=== PATIENT | female | born 1940 | race Caucasian/White ===

== ENCOUNTER 2018-02-01 17:35 | Inpatient (IN) | payer MEDICARE, BC ==
[~2018-02-01] VITALS: Ht 165.1 cm; Wt 71.2 kg
[2018-02-01] MEDS ORDERED: oxyCODONE/APAP (5/325 MG) 1 UDTAB TABLET ONE (17:58)
[2018-02-01] MEDS ORDERED: oxyCODONE/APAP (5/325 MG) 1 UDTAB TABLET PO ONE (18:00)
[2018-02-01] MEDS ORDERED: IV NS 0.9% 1,000 ML BAG IV ONE (18:00)
--- NOTE | 2018-02-01 18:00 | NUR ---
JOSUE FROM [facility] S/P R TOTAL HIP REPLACEMENT-- INSERTION SITE NOT HEALING AND NOTED WITH BLEEDING. PATIENT SX WAS 01/09/18 BY MD SELBY. PATIENT IS AWAKE AND ALERT. NOTED FEBRILE AT THIS TIME. CONNECTED PT TO TELE MONITOR. SEEN BY
[2018-02-01] MEDS ORDERED: AMIN30LI4 PO (18:05)
[2018-02-01] MEDS ORDERED: OMEP20CA10 PO (18:05)
[2018-02-01] MEDS ORDERED: BISA10SU8 RC (18:05)
[2018-02-01] MEDS ORDERED: LACT1CAP71 PO (18:05)
[2018-02-01] MEDS ORDERED: ACET-868 PO (18:05)
[2018-02-01] MEDS ORDERED: AMIO200T4 PO (18:05)
[2018-02-01] MEDS ORDERED: OXYC-133 PO (18:05)
[2018-02-01] MEDS ORDERED: DOCU-141 PO (18:05)
[2018-02-01] MEDS ORDERED: FERR325T23 PO (18:05)
[2018-02-01] MEDS ORDERED: GABA-532 PO (18:05)
[2018-02-01] MEDS ORDERED: POLY17PO4 PO (18:05)
[2018-02-01] MEDS ORDERED: MAGN400O6 PO (18:05)
[2018-02-01] MEDS ORDERED: SENN-18 PO (18:05)
[2018-02-01] MEDS ORDERED: ALBU2.5V38 IH (18:05)
--- NOTE | 2018-02-01 18:06 | NUR ---
PATIENT REFUSED STRAIGHT CATHETER NOR BEDPAN.
--- NOTE | 2018-02-01 18:14 | NUR ---
PATIENT WAS TAKEN TO CT
[2018-02-01 18:18] LABS: BASOPHILS % (AUTO) 0.4 % (0.0-2.0); EOSINOPHILS % (AUTO) 0.5 % (0.0-6.0); HEMATOCRIT 32 % (33-45); HEMOGLOBIN 9.8 g/dL (11.5-14.8); LYMPHOCYTES # (AUTO) 0.8 /CMM (0.8-4.8); LYMPHOCYTES % (AUTO) 8.6 % (20.0-44.0); MEAN CORPUSCULAR HEMOGLOBIN 26 PG (26.0-33.0); MEAN CORPUSCULAR HGB CONC 30 g/dl (31.0-36.0); MEAN CORPUSCULAR VOLUME 86 fL (82-100); MONOCYTES # (AUTO) 0.8 /CMM (0.1-1.30); MONOCYTES % (AUTO) 8.1 % (2.0-12.0); NEUTROPHILS # (AUTO) 8.1 /CMM (1.8-8.9); NEUTROPHILS % (AUTO) 82.4 % (43.0-81.0); PLATELET COUNT (AUTO) 417 /CMM (150-450); RDW COEFFICIENT OF VARIATION 20.5 (11.5-15.0); RED BLOOD CELL COUNT(AUTO) 3.77 MIL/uL (4.0-5.2); WHITE BLOOD COUNT (AUTO) 9.9 K/uL (4.3-11.0)
[2018-02-01 18:20] LABS: CALCIUM, SERUM 8.3 mg/dL (8.5-10.1); CARBON DIOXIDE 28 mmol/L (21-32); CHLORIDE 100 mmol/L (98-107); CREATININE 0.7 mg/dL (0.6-1.3); GLUCOSE 92 mg/dL (74-106); POTASSIUM 3.7 mmol/L (3.5-5.1); SODIUM SERUM 133 mmol/L (136-145); UREA NITROGEN, BLOOD 11 mg/dL (7-18)
[2018-02-01 18:24] LABS: INR 1.4 (0.85-1.15)
[2018-02-01 18:25] LABS: ALANINE AMINOTRANSFERASE 22 U/L (12-78); ALBUMIN 2.3 g/dL (3.4-5.0); ALKALINE PHOSPHATASE 688 U/L (46-116); ASPARTATE AMINOTRANSFERASE 33 U/L (15-37); BILIRUBIN,DIRECT 0.4 mg/dL (0.0-0.2); BILIRUBIN,TOTAL 0.9 mg/dL (0.2-1.0); LIPASE 76 U/L (73-393); TOTAL PROTEIN, SERUM 6.5 g/dL (6.4-8.2)
--- NOTE | 2018-02-01 18:57 | NUR ---
PAGED DR EDILIA PEARSON MD FOR THIS PATIENT
--- NOTE | 2018-02-01 19:03 | NUR ---
CALLED [facility] FOR THIS PATIENT, MILL CONTROL OPERATOR ANANTH LUGO WAS PAGED.
--- NOTE | 2018-02-01 19:10 | NUR ---
REPORT RECEIVED FROM HYACINTH ESPINAL FOR ROWDY.
--- NOTE | 2018-02-01 19:15 | NUR ---
JONES LUGO SPEAKING TO DR. JOHNS REGARDING ADMISSION.
--- NOTE | 2018-02-01 19:23 | NUR ---
CALLED RN SUP FOR M/S BED.
[2018-02-01] MEDS ORDERED: Z GUARD REMEDY 2 OZ OINT TP PRN (19:30)
[2018-02-01] MEDS ORDERED: ONDANSETRON HCL/PF 4 MG/2 ML VIAL IVP PRN (19:30)
[2018-02-01] MEDS ORDERED: ACETAMINOPHEN 325 MG TABLET PO PRN (19:30)
[2018-02-01] MEDS ORDERED: HYDROCODONE/APAP 5/325MG 1 EACH TABLET PO PRN (19:30)
--- NOTE | 2018-02-01 19:43 | NUR ---
ADMIT TO 204-1
--- NOTE | 2018-02-01 19:47 | NUR ---
REPORT GIVEN TO HYACINTH WHITMORE FOR ROWDY.
--- NOTE | 2018-02-01 19:50 | NUR ---
PT TRANSPORTED VIA STRETCHER WITH EMT TO MS 204.1. VSS.
[2018-02-01] MEDS ORDERED: MAGNESIUM HYDROXIDE 30 ML UDC PO PRN (20:00)
[2018-02-01] MEDS ORDERED: BISACODYL SUPP (10 MG) 10 MG/SUPP.RECT SUPP.RECT RC PRN (20:00)
[2018-02-01] MEDS: IV NS 0.9% 1,000 ML IV PRN (20:20)
[2018-02-01] MEDS: SENNOSIDES 8.6 MG TABLET PO SCH (22:00)
--- NOTE | 2018-02-01 22:00 | NUR ---
RN NOTES 1999 - RECEIVED PT AWAKE, ALERT AND ORIENTED X3 VIA GURNEY FROM ER ACCOMPANIED BY 2 ER NURSE. PAIN ON RIGHT HIP AT TOLERABLE LEVEL AT THIS TIME 08/27. VITAL SIGNS STABLE, DENIES NAUSEA AND VOMITING. SKIN ASSESSMENT DONE, RIGHT HIP SURGICAL INCISION ABOUT 17 CM LONG WITH 23 OSKAR WITH MILD BLEEDING AND REDNESS AND SACRAL REDNESS. ADMISSION ORDERS NOTED AND CARRIED OUT. PLAN OF CARE DISCUSSED WITH THE PT. SAFETY MEASURES AND FALL PRECAUTION OBSERVED. 2199 - IT WAS NOTED THAT THE ORDER FOR THE PT IS TELEMETRY, CALIBRATOR BAROMETERS ANASTASIA NOTIFIED. ARASH CHARGE NURSE NOTIFIED AND PT WILL BE MOVED TO MS 3 IN RM 310-1. PT WAS TRANSPORTED TO RM 310-1 IN STABLE CONDITION.
[2018-02-01 22:05] VITALS: BP 148/95
--- NOTE | 2018-02-01 22:10 | NUR ---
MS/RN RECEIVE PATIENT FROM MS SECOND FLOOR. PATIENT IS AWAKE, ALERT, ORIENTED, COMFORTABLE, NO DISTRESS NOTED. ADMISSION DONE PER PROTOCOL. PATIENT UNABLE TO PROVIDE SOME OF HEALTH HISTORY, SOME ADMISSION INFORMATIONS WERE TAKEN FROM E.R. NOTED, PLAN OF CARE DISCUSSED, PATIENT VERBALIZED UNDERSTANDING, FALL PRECAUTIONS PER PROTOCOL INSTITUTED, WILL MONITOR.
[2018-02-01 23:21] LABS: BASOPHILS % (AUTO) 0.1 % (0.0-2.0); HEMATOCRIT 30 % (33-45); HEMOGLOBIN 9.1 g/dL (11.5-14.8); LYMPHOCYTES # (AUTO) 0.8 /CMM (0.8-4.8); LYMPHOCYTES % (AUTO) 8.6 % (20.0-44.0); MEAN CORPUSCULAR HEMOGLOBIN 26 PG (26.0-33.0); MEAN CORPUSCULAR HGB CONC 30 g/dl (31.0-36.0); MEAN CORPUSCULAR VOLUME 86 fL (82-100); MONOCYTES # (AUTO) 0.8 /CMM (0.1-1.30); MONOCYTES % (AUTO) 9.5 % (2.0-12.0); NEUTROPHILS # (AUTO) 7.2 /CMM (1.8-8.9); NEUTROPHILS % (AUTO) 80.8 % (43.0-81.0); PLATELET COUNT (AUTO) 379 /CMM (150-450); RDW COEFFICIENT OF VARIATION 21.2 (11.5-15.0); RED BLOOD CELL COUNT(AUTO) 3.53 MIL/uL (4.0-5.2); WHITE BLOOD COUNT (AUTO) 8.9 K/uL (4.3-11.0)
--- NOTE | 2018-02-01 23:57 | NUR ---
RN NOTES: NOTED RIGHT AC IV ACCESS TO BE INFILTRATED, REMOVED ACCESSED, PRESSURED DRESSING APPLIED, RESTARTED NEW IV ON RIGHT WRIST PT REFUSING LEFT ARM STATED IT HAS BROKEN BONE/BROKEN SHOULDER. GOOD BLOOD RETURN NOTED. RECONNECTED BACK TO IVF.
[2018-02-02] VITALS: BP 143/69
--- NOTE | 2018-02-02 | NUR ---
MS/HYACINTH LUGO NP, AT BEDSIDE.
--- NOTE | 2018-02-02 01:16 | NUR ---
MS/RN PATIENT IS SLEEPING AT THIS TIME, AROUSABLE, APPEAR COMFORTABLE, NO DISTRESS NOTED, CALL LIGHT IN REACH. IVF INFUSING. ALL NEEDS ATTENDED AT THIS TIME, ENDORSED TO NEXT RN FOR CONTINUITY OF CARE.
[2018-02-02] MEDS: oxyCODONE/APAP (5/325 MG) 1 UDTAB TABLET PO PRN ×5 (02:27→21:20)
[2018-02-02 04:00] VITALS: BP 145/74
--- NOTE | 2018-02-02 06:41 | NUR ---
TEMPERATURE REGULATOR CLOSING NOES PT IN BED, AWAKE A/OX 4 , FORGETFUL. NO ACUTE DISTRESS NOTED. PT COMPLAINS OF PAIN AT SURGICAL SIDE, NEXT PAIN MED. CAN BE GIVEN AT 0600 AM. IV SIDE ON R WRIST #22, RUNNING NS AT 75ML/H.ALL NEEDS ATTENDED. SAFETY PRECAUTIONS IN PLACE, CALL LIGHT WITHIN REACH.WOUND DRESSING CHANGED DUE TO BLEEDING. WILL ENDORSE TO NEXT SHIFT FOR ROWDY.
--- NOTE | 2018-02-02 07:15 | NUR ---
telephone clerk initial notes Received patient in bed, awake, head of bed elevated, no SOB or distress noted, on 02 @ 2lpm via NC with 02 saturation of 98%. Alert and oriented x 3, verbally responsive and able to make needs known. Verbalized pain and will give medication. IV intact and patent with IVF infusing well. On tele monitor SR heart rate of 64. Call light within patient reach, will continue to monitor accordingly.
[2018-02-02 07:32] LABS: BASOPHILS % (AUTO) 0.1 % (0.0-2.0); CALCIUM, SERUM 7.9 mg/dL (8.5-10.1); CARBON DIOXIDE 25 mmol/L (21-32); CHLORIDE 107 mmol/L (98-107); CREATININE 0.5 mg/dL (0.6-1.3); EOSINOPHILS % (AUTO) 2.4 % (0.0-6.0); GLUCOSE 96 mg/dL (74-106); HEMATOCRIT 29 % (33-45); HEMOGLOBIN 8.9 g/dL (11.5-14.8); LYMPHOCYTES # (AUTO) 0.8 /CMM (0.8-4.8); LYMPHOCYTES % (AUTO) 10.3 % (20.0-44.0); MAGNESIUM 1.7 mg/dL (1.8-2.4); MEAN CORPUSCULAR HEMOGLOBIN 26 PG (26.0-33.0); MEAN CORPUSCULAR HGB CONC 30 g/dl (31.0-36.0); MEAN CORPUSCULAR VOLUME 87 fL (82-100); MONOCYTES # (AUTO) 0.9 /CMM (0.1-1.30); NEUTROPHILS % (AUTO) 76.2 % (43.0-81.0); PHOSPHORUS 2.9 mg/dL (2.5-4.9); PLATELET COUNT (AUTO) 338 /CMM (150-450); POTASSIUM 3.5 mmol/L (3.5-5.1); RDW COEFFICIENT OF VARIATION 20.3 (11.5-15.0); RED BLOOD CELL COUNT(AUTO) 3.37 MIL/uL (4.0-5.2); SODIUM SERUM 139 mmol/L (136-145); UREA NITROGEN, BLOOD 10 mg/dL (7-18); WHITE BLOOD COUNT (AUTO) 7.9 K/uL (4.3-11.0)
[2018-02-02] MEDS ORDERED: ALBUTEROL FS 2.5 MG/3 ML VIAL.NEB NEB PRN (07:36)
[2018-02-02] MEDS: PANTOPRAZOLE 40 MG TABLET.DR PO SCH (07:49)
[2018-02-02 07:56] LABS: CHOLESTEROL 228 mg/dL (<200); HDL CHOLESTEROL 49 mg/dL (40-60); LDL 154 mg/dL (0-99); THYROID STIMULATING HORMONE 1.425 uIU/mL (0.358-3.74); TRIGLYCERIDES 79 mg/dL (30-150)
[2018-02-02 08:00] VITALS: BP 160/86
[2018-02-02] MEDS ORDERED: oxyCODONE/APAP (5/325 MG) 1 UDTAB TABLET PO PRN (08:00)
[2018-02-02] MEDS: IV NS 0.9% 1,000 ML IV PRN (08:38)
[2018-02-02] MEDS: GABAPENTIN 100 MG CAPSULE PO SCH ×3 (08:39→16:55)
[2018-02-02] MEDS: PROSOURCE / PROSTAT (PYXIS) 30 ML UDC PO SCH ×3 (08:39→16:57)
[2018-02-02] MEDS: DOCUSATE SODIUM 100 MG CAPSULE PO SCH ×2 (08:39→16:55)
[2018-02-02] MEDS: ACIDOPHILUS/BULGARICUS 1 EACH TAB.CHEW PO SCH ×2 (08:40→21:20)
[2018-02-02] MEDS: POLYETHYLENE GLYCOL 3350 17 GM POWD.PACK PO SCH (08:40)
[2018-02-02] MEDS: AMIODARONE HCL 200 MG TABLET PO SCH (08:40)
[2018-02-02 10:07] LABS: TOTAL IRON BINDING CAPACITY 359 ug/dl (250-450)
[2018-02-02] MEDS: Magnesium 1GM/D5W 100ML PREMIX 100 ML IV SCH ×2 (10:07→11:31)
[2018-02-02] MEDS ORDERED: Magnesium 1GM/D5W 100ML PREMIX 100 ML IV SCH (10:33)
[2018-02-02 10:59] LABS: IRON, SERUM 16 ug/dl (50-175)
[2018-02-02 12:04] LABS: BASOPHILS % (AUTO) 0.4 % (0.0-2.0); EOSINOPHILS % (AUTO) 1.6 % (0.0-6.0); HEMATOCRIT 27 % (33-45); HEMOGLOBIN 8.9 g/dL (11.5-14.8); LYMPHOCYTES # (AUTO) 0.7 /CMM (0.8-4.8); MEAN CORPUSCULAR HEMOGLOBIN 28 PG (26.0-33.0); MEAN CORPUSCULAR HGB CONC 33 g/dl (31.0-36.0); MEAN CORPUSCULAR VOLUME 85 fL (82-100); MONOCYTES # (AUTO) 0.8 /CMM (0.1-1.30); MONOCYTES % (AUTO) 10.1 % (2.0-12.0); NEUTROPHILS # (AUTO) 6.3 /CMM (1.8-8.9); NEUTROPHILS % (AUTO) 78.9 % (43.0-81.0); PLATELET COUNT (AUTO) 349 /CMM (150-450); RDW COEFFICIENT OF VARIATION 19.1 (11.5-15.0); RED BLOOD CELL COUNT(AUTO) 3.22 MIL/uL (4.0-5.2); WHITE BLOOD COUNT (AUTO) 7.9 K/uL (4.3-11.0)
[2018-02-02] MEDS: SOD FERRIC GLUC 125 MG in IV NS 0.9% 100 ML IV SCH (15:04)
[2018-02-02 16:00] VITALS: BP 131/60
[2018-02-02] MEDS: ALBUTEROL FS 2.5 MG/3 ML VIAL.NEB NEB SCH (16:24)
[2018-02-02 17:17] LABS: HEMATOCRIT 29 % (33-45); HEMOGLOBIN 9.1 g/dL (11.5-14.8); MEAN CORPUSCULAR HEMOGLOBIN 27 PG (26.0-33.0); MEAN CORPUSCULAR HGB CONC 32 g/dl (31.0-36.0); MEAN CORPUSCULAR VOLUME 85 fL (82-100); PLATELET COUNT (AUTO) 378 /CMM (150-450); RED BLOOD CELL COUNT(AUTO) 3.38 MIL/uL (4.0-5.2); WHITE BLOOD COUNT (AUTO) 8.3 K/uL (4.3-11.0)
--- NOTE | 2018-02-02 19:02 | NUR ---
ms rn closing notes All needs provided, attended, and anticipated. patient in stable condition. Endorsed to next shift RN to continue care. Call light with in patient reach.
--- NOTE | 2018-02-02 19:15 | NUR ---
MS RN OPENING NOTES PT IN BED, AWAKE, NO SOB OR DISTRESS NOTED,ON 2L O2 VIA NC. IV INTACT AND PATENT S/L , IV FLUID D/C.STATUS NPO AFTER MIDNIGHT. SAFETY PRECAUTIONS IN PLACE, CALL LIGHT WITHIN REACH. WILL CONTINUE TO MONITOR .
[2018-02-02 19:31] LABS: LYMPHOCYTES % (MANUAL) 14 % (16-48); MONOCYTES % (MANUAL) 6 % (0-11.0); NEUTROPHILS % (MANUAL) 80 (42-76)
[2018-02-02 20:00] VITALS: BP_SYST 141; BP_SYST 145; BP_DIAS 65; BP_DIAS 69; BP_DIAS 74
[2018-02-02] MEDS: SENNOSIDES 8.6 MG TABLET PO SCH (21:20)
[2018-02-02] MEDS: ZOLPIDEM TARTRATE 5 MG TABLET PO PRN (23:13)
[2018-02-03] MEDS: oxyCODONE/APAP (5/325 MG) 1 UDTAB TABLET PO PRN ×2 (02:03→07:02)
--- NOTE | 2018-02-03 02:55 | NUR ---
RT I WAS NOT MADE AWARE OF SCHEDULED HHN TX FOR PT. I CHECKED ON PT, PT IS CURRENTLY SLEEPING COMFORTABLY WITH NO SINGS OF SOB OR RESP DISTRESS AT THE TIME.
[2018-02-03 04:52] LABS: HEMATOCRIT 28 % (33-45); HEMOGLOBIN 8.7 g/dL (11.5-14.8); MEAN CORPUSCULAR HEMOGLOBIN 26 PG (26.0-33.0); MEAN CORPUSCULAR HGB CONC 31 g/dl (31.0-36.0); MEAN CORPUSCULAR VOLUME 85 fL (82-100); PLATELET COUNT (AUTO) 370 /CMM (150-450); RDW COEFFICIENT OF VARIATION 19.7 (11.5-15.0); RED BLOOD CELL COUNT(AUTO) 3.31 MIL/uL (4.0-5.2); WHITE BLOOD COUNT (AUTO) 8.1 K/uL (4.3-11.0)
[2018-02-03 05:14] LABS: BAND % (MANUAL) 1 % (0.0-5.0); EOSINOPHILS % (MANUAL) 2 % (0-4); LYMPHOCYTES % (MANUAL) 15 % (16-48); MONOCYTES % (MANUAL) 6 % (0-11.0); NEUTROPHILS % (MANUAL) 76 (42-76)
--- NOTE | 2018-02-03 06:40 | NUR ---
MS RN CLOSING OTES PT IN STABLE CONDITION , STATUS NPO SINCE MIDNIGHT.ALL NEEDS ANTICIPATED, PRN PAIN MEDS GIVEN.DRESSING CHANGE DONE AND PICTURES ARE TAKEN AND PLACED IN THE CHART.SAFETY PRECAUTIONS IN PLACE, CALL LIGHT WITHIN REACH. WILL ENDORSE TO NEXT SHIFT FOR ROWDY.
--- NOTE | 2018-02-03 07:10 | NUR ---
ms rn initial notes Receive patient in bed, awake, head of bed elevated, no SOB or distress noted, on 02 @ 2lpm via NC and tolerated well. Alert and oriented x 3 verbally responsive and able to make needs known. IV intact and patent, NPO at this time, scheduled procedure with Dr. Curtis today. Call light with in patient reach, will continue to monitor accordingly.
[2018-02-03 07:26] LABS: ALBUMIN 1.8 g/dL (3.4-5.0); ALKALINE PHOSPHATASE 485 U/L (46-116); ASPARTATE AMINOTRANSFERASE 21 U/L (15-37); BILIRUBIN,TOTAL 0.4 mg/dL (0.2-1.0); CARBON DIOXIDE 29 mmol/L (21-32); CHLORIDE 109 mmol/L (98-107); CREATININE 0.5 mg/dL (0.6-1.3); GLUCOSE 86 mg/dL (74-106); POTASSIUM 3.6 mmol/L (3.5-5.1); SODIUM SERUM 142 mmol/L (136-145); TOTAL PROTEIN, SERUM 5.4 g/dL (6.4-8.2); UREA NITROGEN, BLOOD 12 mg/dL (7-18)
[2018-02-03] MEDS: PANTOPRAZOLE 40 MG TABLET.DR PO SCH (07:30)
[2018-02-03 07:37] LABS: ALANINE AMINOTRANSFERASE 14 U/L (12-78)
[2018-02-03 07:59] LABS: HEMATOCRIT 27 % (33-45); HEMOGLOBIN 8.5 g/dL (11.5-14.8); MEAN CORPUSCULAR HEMOGLOBIN 27 PG (26.0-33.0); MEAN CORPUSCULAR HGB CONC 32 g/dl (31.0-36.0); MEAN CORPUSCULAR VOLUME 85 fL (82-100); PLATELET COUNT (AUTO) 370 /CMM (150-450); RED BLOOD CELL COUNT(AUTO) 3.14 MIL/uL (4.0-5.2); WHITE BLOOD COUNT (AUTO) 7.6 K/uL (4.3-11.0)
[2018-02-03 08:00] VITALS: BP 153/69
[2018-02-03] MEDS: ALBUTEROL FS 2.5 MG/3 ML VIAL.NEB NEB SCH ×3 (08:37→19:36)
[2018-02-03] MEDS: DOCUSATE SODIUM 100 MG CAPSULE PO SCH ×2 (08:54→16:38)
[2018-02-03] MEDS: PROSOURCE / PROSTAT (PYXIS) 30 ML UDC PO SCH ×3 (08:55→16:38)
[2018-02-03] MEDS: GABAPENTIN 100 MG CAPSULE PO SCH ×3 (08:55→16:35)
[2018-02-03] MEDS: AMIODARONE HCL 200 MG TABLET PO SCH (08:55)
[2018-02-03] MEDS: ACIDOPHILUS/BULGARICUS 1 EACH TAB.CHEW PO SCH ×2 (08:55→20:24)
[2018-02-03] MEDS: POLYETHYLENE GLYCOL 3350 17 GM POWD.PACK PO SCH (08:55)
[2018-02-03] MEDS ORDERED: ANESTHESIA TRAY IN PYXIS 1 EA TRAY MC ONE (09:21)
[2018-02-03] MEDS ORDERED: MORPHINE SULFATE INJ 4 MG/ML DISP.SYRIN ONE ×2 (09:52→11:15)
[2018-02-03 10:18] LABS: LYMPHOCYTES % (MANUAL) 12 % (16-48); NEUTROPHILS % (MANUAL) 79 (42-76)
[2018-02-03 10:19] LABS: BASOPHILS % (MANUAL) 0 % (0.0-2.0); EOSINOPHILS % (MANUAL) 4 % (0-4); MONOCYTES % (MANUAL) 5 % (0-11.0)
[2018-02-03] MEDS ORDERED: BACITRACIN 50000 UNITS/VIAL ONE (10:21)
[2018-02-03] MEDS ORDERED: MORPHINE SULFATE INJ 2 MG/ML DISP.SYRIN IV PRN (12:00)
[2018-02-03] MEDS: HYDROCODONE/APAP 10/325MG 1 EA TABLET PO PRN ×3 (12:31→20:50)
[2018-02-03] MEDS: SOD FERRIC GLUC 125 MG in IV NS 0.9% 100 ML IV SCH (14:18)
[2018-02-03 16:00] VITALS: BP 139/64
[2018-02-03] MEDS: ANCEF 1 GM/50 ML D5W IV SCH ×2 (17:19)
[2018-02-03] MEDS: IV D5/0.45 NACL W/20 MEQ KCL 1L IV PRN ×2 (17:22)
--- NOTE | 2018-02-03 19:14 | NUR ---
ms rn closing notes All needs provided, attended, and anticipated. Patient in stable condition at this time. Endorsed to next shift RN to continue care. Call light with in patient reach.
--- NOTE | 2018-02-03 19:30 | NUR ---
RN MS OPENING NOTES RECEIVED PATIENT IN BED AWAKE. ALERT AND ORIENTED X3. BREATHING EVEN AND UNLABORED. NO SOB NOTED. ON 2L OF O2 VIA NC. DENIES ANY PAIN OR DISCOMFORT. IV ON LEFT FA INTACT AND PATENT - INFUSING D5 1/2 NS @ 75ML/HR. ALL OTHER NEEDS ATTENDED TO. CALL LIGHT WITHIN REACH. BED ON LOWEST LOCKED POSITION. WILL CONTINUE TO MONITOR.
[2018-02-03 20:00] VITALS: BP 126/67
[2018-02-03] MEDS: SENNOSIDES 8.6 MG TABLET PO SCH (21:03)
[2018-02-03] MEDS: ZOLPIDEM TARTRATE 5 MG TABLET PO PRN (22:24)
[2018-02-04] MEDS: ALBUTEROL FS 2.5 MG/3 ML VIAL.NEB NEB SCH ×4 (01:30→20:20)
--- NOTE | 2018-02-04 01:45 | NUR ---
RT NOTE PATIENT REFUSED TREATMENT. PRIMARY RN STANFORD NOTIFIED. PATIENT HAS NO SIGNS OF RESPIRATORY DISTRESS. SPO2 96% ON 2LPM. WILL CONTINUE TO MONITOR.
[2018-02-04] MEDS: ANCEF 1 GM/50 ML D5W IV SCH ×4 (02:27→09:32)
[2018-02-04] MEDS: HYDROCODONE/APAP 10/325MG 1 EA TABLET PO PRN ×4 (04:34→20:02)
--- NOTE | 2018-02-04 06:59 | NUR ---
RN MS CLOSING NOTES PATIENT IN BED ASLEEP. EASILY AROUSABLE. NO ACUTE CHANGES THROUGHOUT SHIFT. ALERT AND ORIENTED X3. BREATHING EVEN AND UNLABORED. NO SOB NOTED. ON 2L OF O2 VIA NC. DENIES ANY PAIN OR DISCOMFORT AT THIS TIME. IV ON LEFT FA INTACT AND PATENT - INFUSING D5 1/2 NS @ 75ML/HR. KEPT CLEAN DRY AND COMFORTABLE. ALL OTHER NEEDS ATTENDED TO. CALL LIGHT WITHIN REACH. BED ON LOWEST LOCKED POSITION. WILL ENDORSE TO ONCOMING NURSE FOR CONTINUITY OF CARE.
--- NOTE | 2018-02-04 07:05 | NUR ---
ms rn initial notes Received patient in bed, asleep, head of bed elevated, no SOB or distress noted, on 02 @ 2lpm via NC and tolerated well. Appears calm and no apparent distress noted. IV intact and patent with IVF infusing well. Call light with in patient reach, will continue to monitor accordingly.
[2018-02-04 07:15] LABS: CALCIUM, SERUM 8.1 mg/dL (8.5-10.1); CARBON DIOXIDE 25 mmol/L (21-32); CHLORIDE 105 mmol/L (98-107); CREATININE 0.6 mg/dL (0.6-1.3); GLUCOSE 98 mg/dL (74-106); MAGNESIUM 1.7 mg/dL (1.8-2.4); PHOSPHORUS 2.9 mg/dL (2.5-4.9); POTASSIUM 4.1 mmol/L (3.5-5.1); SODIUM SERUM 139 mmol/L (136-145); UREA NITROGEN, BLOOD 11 mg/dL (7-18)
[2018-02-04 08:00] VITALS: BP 149/73
[2018-02-04 08:12] LABS: RED BLOOD CELL COUNT(AUTO) 3.24 MIL/uL (4.0-5.2); WHITE BLOOD COUNT (AUTO) 8.7 K/uL (4.3-11.0)
[2018-02-04 08:13] LABS: BASOPHILS % (AUTO) 0.2 % (0.0-2.0); EOSINOPHILS % (AUTO) 3.4 % (0.0-6.0); HEMATOCRIT 27 % (33-45); HEMOGLOBIN 8.7 g/dL (11.5-14.8); LYMPHOCYTES % (AUTO) 10.8 % (20.0-44.0); MEAN CORPUSCULAR HEMOGLOBIN 27 PG (26.0-33.0); MEAN CORPUSCULAR HGB CONC 32 g/dl (31.0-36.0); MEAN CORPUSCULAR VOLUME 85 fL (82-100); MONOCYTES % (AUTO) 12.5 % (2.0-12.0); NEUTROPHILS % (AUTO) 73.1 % (43.0-81.0); PLATELET COUNT (AUTO) 370 /CMM (150-450)
[2018-02-04 08:14] LABS: RDW COEFFICIENT OF VARIATION 20.2 (11.5-15.0)
[2018-02-04] MEDS: GABAPENTIN 100 MG CAPSULE PO SCH ×3 (08:21→16:32)
[2018-02-04] MEDS: POLYETHYLENE GLYCOL 3350 17 GM POWD.PACK PO SCH (08:21)
[2018-02-04] MEDS: PANTOPRAZOLE 40 MG TABLET.DR PO SCH (08:21)
[2018-02-04] MEDS: ACIDOPHILUS/BULGARICUS 1 EACH TAB.CHEW PO SCH ×2 (08:21→20:01)
[2018-02-04] MEDS: DOCUSATE SODIUM 100 MG CAPSULE PO SCH ×2 (08:21→16:32)
[2018-02-04] MEDS: AMIODARONE HCL 200 MG TABLET PO SCH (08:22)
[2018-02-04] MEDS: PROSOURCE / PROSTAT (PYXIS) 30 ML UDC PO SCH ×3 (08:22→16:33)
[2018-02-04] MEDS: Magnesium 1GM/D5W 100ML PREMIX 100 ML IV SCH ×2 (10:53→12:04)
[2018-02-04 12:00] VITALS: BP 101/55
[2018-02-04] MEDS: SOD FERRIC GLUC 125 MG in IV NS 0.9% 100 ML IV SCH (14:53)
[2018-02-04 16:00] VITALS: BP_SYST 140; BP_SYST 163; BP_DIAS 76; BP_DIAS 84
[2018-02-04] MEDS ORDERED: CEFTRIAXONE 1 G in IV D5W 50 ML IV SCH (17:00)
[2018-02-04] MEDS: IV D5/0.45 NACL W/20 MEQ KCL 1L IV PRN ×2 (17:32)
--- NOTE | 2018-02-04 19:14 | NUR ---
ms rn closing notes All needs provided, attended, and anticipated. Patient in stable condition. Endorsed to operations team leader RN to continue care. Call light with in patient reach.
--- NOTE | 2018-02-04 19:30 | NUR ---
RN MS OPENING NOTES RECEIVED PATIENT IN BED AWAKE. ALERT AND ORIENTED X3. BREATHING EVEN AND UNLABORED. NO SOB NOTED. ON 2L OF O2 VIA NC. WITH PAIN 8/10 ON RIGHT HIP. WILL GIVE NORCO ON NEXT SCHEDULED TIME - PATIENT VERBALIZES UNDERSTANDING. IV ON LEFT FA INTACT AND PATENT - INFUSING D5 1/2 NS @ 10ML/HR. ALL OTHER NEEDS ATTENDED TO. CALL LIGHT WITHIN REACH. BED ON LOWEST LOCKED POSITION. WILL CONTINUE TO MONITOR.
[2018-02-04 20:00] VITALS: BP 153/79
--- NOTE | 2018-02-04 20:02 | NUR ---
RN MS NOTES PATIENT COMPLAINED OF PAIN ON RIGHT HIP AD REQUESTED FOR NORCO. PAIN IS 8/10 ON PAIN SCALE. ACHING AND THROBBING ESPECIALLY WITH MOVEMENTS. NORCO GIVEN. WILL CONTINUE TO MONITOR.
[2018-02-04] MEDS: SENNOSIDES 8.6 MG TABLET PO SCH (21:22)
[2018-02-04] MEDS: ZOLPIDEM TARTRATE 5 MG TABLET PO PRN (22:51)
[2018-02-05] MEDS: HYDROCODONE/APAP 10/325MG 1 EA TABLET PO PRN ×4 (00:43→16:51)
--- NOTE | 2018-02-05 00:43 | NUR ---
RN MS NOTES PATIENT COMPLAINED OF PAIN ON RIGHT HIP AND REQUESTED FOR NORCO. PAIN IS 7/10 ON PAIN SCALE. . NORCO GIVEN. WILL CONTINUE TO MONITOR.
[2018-02-05] MEDS: ALBUTEROL FS 2.5 MG/3 ML VIAL.NEB NEB SCH ×3 (01:35→13:55)
--- NOTE | 2018-02-05 06:50 | NUR ---
RN MS CLOSING NOTES PATIENT IN BED ASLEEP. EASILY AROUSABLE. NO ACUTE CHANGES THROUGHOUT SHIFT. ALERT AND ORIENTED X3. BREATHING EVEN AND UNLABORED. NO SOB NOTED. ON 2L OF O2 VIA NC. NO S/S PAIN OR DISCOMFORT. NO FACIAL GRIMACING. IV ON LEFT FA INTACT AND PATENT - INFUSING D5 1/2 NS @ 75ML/HR. KEPT CLEAN DRY AND COMFORTABLE. ALL OTHER NEEDS ATTENDED TO. CALL LIGHT WITHIN REACH. BED ON LOWEST LOCKED POSITION. WILL ENDORSE TO ONCOMING NURSE FOR CONTINUITY OF CARE.
[2018-02-05 06:57] LABS: CARBON DIOXIDE 26 mmol/L (21-32); CHLORIDE 103 mmol/L (98-107); CREATININE 0.5 mg/dL (0.6-1.3); GLUCOSE 94 mg/dL (74-106); MAGNESIUM 1.9 mg/dL (1.8-2.4); POTASSIUM 3.7 mmol/L (3.5-5.1); SODIUM SERUM 136 mmol/L (136-145); UREA NITROGEN, BLOOD 9 mg/dL (7-18)
[2018-02-05 08:00] VITALS: BP 147/74
[2018-02-05] MEDS: PANTOPRAZOLE 40 MG TABLET.DR PO SCH (08:07)
[2018-02-05] MEDS: DOCUSATE SODIUM 100 MG CAPSULE PO SCH ×2 (08:09→16:52)
[2018-02-05] MEDS: POLYETHYLENE GLYCOL 3350 17 GM POWD.PACK PO SCH (08:09)
[2018-02-05] MEDS: GABAPENTIN 100 MG CAPSULE PO SCH ×3 (08:10→16:51)
[2018-02-05] MEDS: ACIDOPHILUS/BULGARICUS 1 EACH TAB.CHEW PO SCH (08:10)
[2018-02-05] MEDS: AMIODARONE HCL 200 MG TABLET PO SCH (08:10)
--- NOTE | 2018-02-05 08:10 | NUR ---
MS RN Initial notes Patient sitting up in bed, consumed 100% of her breakfast. On oxygen at 2L via NC, no SOB. Had am breathing tx. per RT. Complaint of right hip paint 11/26, PO PRN norco given, will reassess pain. Right hip incision dressing intact, keep clean and dry. Maintained fall precaution, will cont to monitor.
[2018-02-05] MEDS: PROSOURCE / PROSTAT (PYXIS) 30 ML UDC PO SCH ×3 (08:11→16:52)
--- NOTE | 2018-02-05 14:47 | NUR ---
Called spoke to Luis Henry/francesco. per MD patient is clear to go home. Informed Dr. Sexton.
[2018-02-05] MEDS: SOD FERRIC GLUC 125 MG in IV NS 0.9% 100 ML IV SCH (15:02)
[2018-02-05 15:11] LABS: OCCULT BLOOD STOOL NEGATIVE (NEGATIVE)
[2018-02-05 16:00] VITALS: BP 148/80
--- NOTE | 2018-02-05 17:03 | NUR ---
MS RN Discharged Patient has been cleared for discharge to SNF by . VS remains stable, right hip pain managed by PO RANDALL Graham. Right hip incision dressing changed today. Discharge instruction given to patient, verbalized understanding. Call [facility], spoke with HYACINTH Olivares for report. Belongings checked and send with the patient upon DC. Patient left hosp via ambulance in stable condition.
== END 2018-02-05 17:15 | DRG 982 ==
LOC: ER 17:44 → MEDSG2 19:47 → TELE 22:18 → MED 02-02 08:53
PROVIDERS: ADMIT Registered Nurse; ATTEND Registered Nurse
PROC: 0H98XZZ Drainage of Buttock Skin, External Approach (ICD-10-PCS; principal; 2018-02-03 09:30)
PROC: 0W9B4ZZ Drainage of Left Pleural Cavity, Percutaneous Endoscopic Approach (ICD-10-PCS; 2018-02-05)
DX: T84.83XA Hemorrhage due to internal orthopedic prosthetic devices, implants and grafts, initial encounter (principal); E87.1 Hypo-osmolality and hyponatremia; J90 Pleural effusion, not elsewhere classified; D62 Acute posthemorrhagic anemia; Y83.9 Surgical procedure, unspecified as the cause of abnormal reaction of the patient, or of later complication, without mention of misadventure at the time of the procedure; Y92.129 Unspecified place in nursing home as the place of occurrence of the external cause; E86.0 Dehydration; Y82.9 Unspecified medical devices associated with adverse incidents; Z79.899 Other long term (current) drug therapy; K21.9 Gastro-esophageal reflux disease without esophagitis; I48.91 Unspecified atrial fibrillation; M19.90 Unspecified osteoarthritis, unspecified site; Z79.01 Long term (current) use of anticoagulants; J44.9 Chronic obstructive pulmonary disease, unspecified; E83.42 Hypomagnesemia; S70.01XA Contusion of right hip, initial encounter; Z96.642 Presence of left artificial hip joint; R74.0 Nonspecific elevation of levels of transaminase and lactic acid dehydrogenase [LDH]; F03.90 Unspecified dementia, unspecified severity, without behavioral disturbance, psychotic disturbance, mood disturbance, and anxiety; C44.90 Unspecified malignant neoplasm of skin, unspecified
CPT/HCPCS: 36415; 71045-TC; 73700-TC; 76604-TC; 76942-TC; 80048-TC; 80053-TC; 80061-TC; 80076-TC; 82272-TC; 83540-TC; 83690-TC; 83735-TC; 84100-TC; 84443-TC; 85025-TC; 85730-TC; 87070-TC; 87075-TC; 87081-TC; 87186-TC; 89051-TC; 93307-TC; A4217; A4606; A6253; A6402; A6403; J0690; J0696; J2270; J2916; J3475; J3480; J3490; J7030; J7060; Z7610

== ENCOUNTER 2018-07-09 12:47 | Inpatient (IN) | payer MEDICARE, BC ==
[~2018-07-09] VITALS: Ht 177.8 cm; Wt 62.6 kg
[2018-07-09] VITALS: BP 204/99
[~2018-07-09 12:47] MED LIST: ACET-868 PO; ALBU2.5V38 IH; AMIN30LI4 PO; AMIO200T4 PO; BISA10SU8 RC; DOCU-141 PO; FERR325T23 PO; GABA-532 PO; LACT1CAP71 PO; MAGN400O6 PO; OMEP20CA10 PO; OXYC-133 PO; POLY17PO4 PO; SENN-18 PO
--- NOTE | 2018-07-09 12:50 | NUR ---
JOSUE SENT BY DR LEÓN FOR GENERALIZED WEAKNESS, DIARRHEA x3 days
[2018-07-09 13:28] LABS: BASOPHILS % (AUTO) 0.6 % (0.0-2.0); EOSINOPHILS % (AUTO) 5.9 % (0.0-6.0); HEMATOCRIT 35 % (33-45); HEMOGLOBIN 11.9 g/dL (11.5-14.8); LYMPHOCYTES # (AUTO) 0.8 /CMM (0.8-4.8); LYMPHOCYTES % (AUTO) 12.3 % (20.0-44.0); MEAN CORPUSCULAR HGB CONC 34 g/dl (31.0-36.0); MEAN CORPUSCULAR VOLUME 94 fL (82-100); MONOCYTES # (AUTO) 0.4 /CMM (0.1-1.30); MONOCYTES % (AUTO) 6.8 % (2.0-12.0); NEUTROPHILS # (AUTO) 4.5 /CMM (1.8-8.9); NEUTROPHILS % (AUTO) 74.4 % (43.0-81.0); PLATELET COUNT (AUTO) 158 /CMM (150-450); RED BLOOD CELL COUNT(AUTO) 3.77 MIL/uL (4.0-5.2); WHITE BLOOD COUNT (AUTO) 6.1 K/uL (4.3-11.0)
[2018-07-09] MEDS ORDERED: IV NS 0.9% 500 ML BAG IV ONE (13:30)
[2018-07-09] MEDS ORDERED: ONDANSETRON HCL/PF 4 MG/2 ML VIAL IVP ONE (13:30)
[2018-07-09] MEDS ORDERED: ONDANSETRON HCL/PF 4 MG/2 ML VIAL ONE (13:38)
[2018-07-09 13:39] LABS: CALCIUM, SERUM 9.3 mg/dL (8.5-10.1); CARBON DIOXIDE 31 mmol/L (21-32); CHLORIDE 104 mmol/L (98-107); CREATININE 0.8 mg/dL (0.6-1.3); GLUCOSE 114 mg/dL (74-106); POTASSIUM 4.2 mmol/L (3.5-5.1); SODIUM SERUM 142 mmol/L (136-145); UREA NITROGEN, BLOOD 21 mg/dL (7-18)
[2018-07-09 13:44] LABS: ALANINE AMINOTRANSFERASE 87 U/L (12-78); ALBUMIN 2.9 g/dL (3.4-5.0); ALKALINE PHOSPHATASE 487 U/L (46-116); ASPARTATE AMINOTRANSFERASE 62 U/L (15-37); BILIRUBIN,DIRECT 0.4 mg/dL (0.0-0.2); BILIRUBIN,TOTAL 0.6 mg/dL (0.2-1.0); LIPASE 129 U/L (73-393); TOTAL PROTEIN, SERUM 7.3 g/dL (6.4-8.2)
[2018-07-09 14:30] LABS: APPEARANCE,URINE Clear (CLEAR); BILIRUBIN,URINE Negative (NEGATIVE); BLOOD, URINE Negative Ery/uL (NEGATIVE); COLOR,URINE Yellow (YELLOW); KETONES,URINE Negative (NEGATIVE); LEUKOCYTE ESTERASE ,URINE Negative (NEGATIVE); NITRITE, URINE Negative (NEGATIVE); PH,URINE 8.5 (5.0-8.0); PROTEIN,URINE Negative (NEGATIVE); UGLUCOSE Negative (NEGATIVE)
[2018-07-09 14:39] LABS: BACTERIA,URINE None seen /HPF (None Seen); SQUAMOUS EPITHELIAL CELL,UR Few /HPF (None Seen); URINE AMORPHOUS PHOSPHATES Moderate /HPF (None Seen); WBC,URINE 0-3 /HPF (0-3)
[2018-07-09] MEDS ORDERED: PIPERACILLIN /TAZOBACTAM 3.375 G in IV D5W 50 ML IV ONE (16:30)
[2018-07-09] MEDS ORDERED: LEVOFLOXACIN 750 MG /D5W 150ML PIGGYBACK IV ONE (16:30)
[2018-07-09] MEDS ORDERED: oxyCODONE/APAP (5/325 MG) 1 UDTAB TABLET ONE (16:46)
[2018-07-09] MEDS ORDERED: oxyCODONE/APAP (5/325 MG) 1 UDTAB TABLET PO ONE (17:00)
[2018-07-09] MEDS ORDERED: LEVOFLOXACIN 750 MG /D5W 150ML 750 MG in PREMIX 1 EA IV ONE (17:00)
--- NOTE | 2018-07-09 17:00 | NUR ---
DUPLICATE ORDER FOR LEVAQUIN IV.
--- NOTE | 2018-07-09 17:01 | NUR ---
2ND PIV INSERTED ON RFA G20.
[2018-07-09] MEDS ORDERED: MELA3TAB PO (17:34)
[2018-07-09] MEDS ORDERED: TRAZ-182 PO (17:34)
[2018-07-09] MEDS ORDERED: APIX2.5T PO (17:34)
[2018-07-09] MEDS ORDERED: CAPS42.57 TP (17:34)
[2018-07-09] MEDS ORDERED: AMIN30LI2 PO (17:45)
[2018-07-09] MEDS ORDERED: DICL50TA9 PO (17:45)
--- NOTE | 2018-07-09 18:39 | NUR ---
PATIENT IN BED, NAD, VSS. NEEDS ATTENDED, CALL LIGHT WITHIN REACH, WILL CONTINUE TO MONITOR.
--- NOTE | 2018-07-09 19:22 | NUR ---
PATIENT A/OX3, VSS, NAD, NO SOB, REPORT GIVEN TO CH[place] CLAROS FOR CONTINUITY OF CARE. BED STILL PENDING.
--- NOTE | 2018-07-09 21:49 | NUR ---
GAVE REPORT TO KATYA CLAROS FOR ROWDY
--- NOTE | 2018-07-09 22:00 | NUR ---
RN INITIAL NOTES RECEIVED PATIENT'S REPORT FROM COMPUTER TECHNOLOGY TEACHER [place] AND RECEIVED PATIENT ON [facility] . PATIENT IS A/A/OX4, COMPLAINT OF SOB , NO CHEST PAIN, NO DISCOMFORT AT THIS TIME. RIGHT FOREARM AND LEFT FOREARM G20 IV LINES ARE PATIENT ANT INTACT. MONCADA CATHETER IS IN PLACE DRAINING ON GRAVITY.PATIENT WAS PLACED ON SURVEILLANCE DUAL RATE OFFICER WITH HR OF 64. PATIENT IS ON 1L O2 VIA NC WITH SPO2 OF 99%. ALL SAFETY MEASURES ARE IMPLEMENTED, BED IN LOW, LOCKED POSITION, CALL LIGHT IN REACH. WILL CONTINUE TO MONITOR.
--- NOTE | 2018-07-09 22:02 | NUR ---
TRANSFERRED PT PER ACLS PROTOCOL
[2018-07-09 22:24] VITALS: BP 189/92
[2018-07-10] VITALS: BP 204/99
[2018-07-10] MEDS ORDERED: ONDANSETRON HCL/PF 4 MG/2 ML VIAL IVP PRN
[2018-07-10] MEDS: oxyCODONE/APAP (5/325 MG) 1 UDTAB TABLET PO PRN ×4 (00:29→20:57)
[2018-07-10] MEDS: APIXABAN 2.5 MG TABLET PO SCH ×3 (00:30→17:44)
--- NOTE | 2018-07-10 00:30 | NUR ---
RN NOTES ELIQUIS PO 2.5MG HAS NOT BEEN ADMINISTERED DUE TO NON AVAILABILITY. FILTER PRESS OPERATOR DONNA AND NURSE PODIATRIC PHYSICIAN NOTIFIED. WILL ENDORSE TO AM SHIFT FOR AUTOMOBILE BUMPER STRAIGHTENER.
[2018-07-10] MEDS: GABAPENTIN 100 MG CAPSULE PO SCH ×4 (00:51→20:41)
[2018-07-10] MEDS: TRAZODONE 50 MG TABLET PO SCH ×2 (00:52→21:45)
[2018-07-10] MEDS: ZOLPIDEM TARTRATE 5 MG TABLET PO PRN (00:52)
[2018-07-10] MEDS: DICLOFENAC SODIUM 25 MG TABLET.DR PO SCH ×4 (00:53→16:16)
[2018-07-10] MEDS: hydrALAZINE HCL IV 20 MG VIAL IV PRN ×2 (00:56→04:52)
[2018-07-10 04:00] VITALS: BP 161/78
--- NOTE | 2018-07-10 05:30 | NUR ---
rn notes blood pressure checked it is 140/71 after PRN APRESOLINE IV administration. Will continue to monitor patient.
--- NOTE | 2018-07-10 06:28 | NUR ---
RN CLOSING NOTES PATIENT IS COMFORTABLY SLEEPING IN THE BED, NO CHEST PAIN, NO DISCOMFORT AT THIS TIME. RIGHT FOREARM AND LEFT FOREARM G20 IV LINES ARE PATIENT ANT INTACT. MONCADA CATHETER IS IN PLACE DRAINING ON GRAVITY.PATIENT IS ON DIMENSIONAL INSPECTOR WITH SR AT ALL TIME. PATIENT IS ON 1L O2 VIA NC WITH SPO2 OF 99%. ALL SAFETY MEASURES ARE IMPLEMENTED, BED IN LOW, LOCKED POSITION, CALL LIGHT IN REACH. WILL INDORSE PATIENT CARE TO AM RN FOR FORENSIC NURSE.
[2018-07-10 06:31] LABS: BASOPHILS % (AUTO) 0.7 % (0.0-2.0); EOSINOPHILS % (AUTO) 2.7 % (0.0-6.0); HEMATOCRIT 35 % (33-45); HEMOGLOBIN 11.6 g/dL (11.5-14.8); LYMPHOCYTES % (AUTO) 14.2 % (20.0-44.0); MEAN CORPUSCULAR HGB CONC 34 g/dl (31.0-36.0); MEAN CORPUSCULAR VOLUME 92 fL (82-100); MONOCYTES # (AUTO) 0.5 /CMM (0.1-1.30); MONOCYTES % (AUTO) 7.7 % (2.0-12.0); NEUTROPHILS # (AUTO) 5.3 /CMM (1.8-8.9); NEUTROPHILS % (AUTO) 74.7 % (43.0-81.0); PLATELET COUNT (AUTO) 157 /CMM (150-450); RED BLOOD CELL COUNT(AUTO) 3.73 MIL/uL (4.0-5.2)
[2018-07-10 06:49] LABS: CHOLESTEROL 228 mg/dL (<200); HDL CHOLESTEROL 61 mg/dL (40-60); LDL 146 mg/dL (0-99); TRIGLYCERIDES 54 mg/dL (30-150)
[2018-07-10 07:08] LABS: CALCIUM, SERUM 9.1 mg/dL (8.5-10.1); CARBON DIOXIDE 27 mmol/L (21-32); CHLORIDE 104 mmol/L (98-107); CREATININE 0.7 mg/dL (0.6-1.3); GLUCOSE 87 mg/dL (74-106); PHOSPHORUS 3.8 mg/dL (2.5-4.9); SODIUM SERUM 140 mmol/L (136-145); UREA NITROGEN, BLOOD 17 mg/dL (7-18)
[2018-07-10 08:00] VITALS: BP 140/73
[2018-07-10] MEDS: FERROUS SULFATE (325 MG) 325 MG/TAB TABLET PO SCH (09:13)
[2018-07-10] MEDS: LACTOBACILLUS RHAMNOSUS GG 1 EACH CAP.SPRINK PO SCH ×2 (09:13→16:16)
[2018-07-10] MEDS: AMIODARONE HCL 200 MG TABLET PO SCH (09:14)
[2018-07-10] MEDS: PANTOPRAZOLE 40 MG TABLET.DR PO SCH (09:29)
[2018-07-10 12:00] VITALS: BP 136/68
[2018-07-10 16:00] VITALS: BP 142/86
--- NOTE | 2018-07-10 19:45 | NUR ---
TELE GOLD NIB GRINDER INITIAL NOTES RECEIVED REPORT FROM AM NURSE AND SEEN PT IN BED AWAKE AND ALERT WATCHING TV AT THIS TIME. NO SIGNS OF ANY ACUTE DISTRESS NOTED. PT IS ALERT ORIENTED SHE KNOWS WHERE SHE AT AND AWARE HOW TO USED THE CALL LIGHT SYSTEM. SKIN WARM AND DRY TO TOUCH. HEPLOCK PATENT AND INTACT. ENCOURAGED HER TO USED THE CALL LIGHT SYSTEM IF SHE NEEDS SOME HELPED. BED IN LOW AND LOCK IN POSITION WITH SIDE RAILS X2 UP. BED AALRMS ET FOR PT SAFETY. WILL CONTINUE MONITORING. PLACE CALL LIGHT AT REACH.
[2018-07-10 20:00] VITALS: BP 126/65
[2018-07-10] MEDS: POLYETHYLENE GLYCOL 3350 17 GM POWD.PACK PO SCH (20:41)
[2018-07-10] MEDS: ACETAMINOPHEN 325 MG TABLET PO PRN ×2 (20:51→20:54)
--- NOTE | 2018-07-10 20:51 | NUR ---
TELE COTTON WEIGHER OPERATOR NOTES' PT AWAKE AND ALERT COMPLAINING OF PAIN GENERALIZED AND ASKING FOR TYLENOL BUT AFTER I OPEN AND SHE'S READY TO TAKE IT SHE STATED MY PAIN 8 I WANT PERCOCET INSTEAD.
--- NOTE | 2018-07-10 20:57 | NUR ---
TELE LICENSED FINAL EXPENSE AGENTS NOTES PERCOCET GIVEN PER PT REQUESTED AND ORDERED FOR PAIN 12/27. TELE SINUS RHYTHM PER MONITOR. KEPT HER WARM AND COMFORTABLE AT ALL TIMES. WILL CONTINUE MONITORING. PLACE CALL LIGHT AT REACH.
[2018-07-10] MEDS: ATORVASTATIN 40 MG TABLET PO SCH (21:45)
[2018-07-11 00:30] VITALS: BP 144/78
[2018-07-11] MEDS: ZOLPIDEM TARTRATE 5 MG TABLET PO PRN (01:01)
[2018-07-11 04:00] VITALS: BP 152/74
[2018-07-11] MEDS: GABAPENTIN 100 MG CAPSULE PO SCH ×3 (05:15→21:04)
[2018-07-11 06:48] LABS: BASOPHILS % (AUTO) 0.7 % (0.0-2.0); EOSINOPHILS % (AUTO) 5.3 % (0.0-6.0); HEMATOCRIT 34 % (33-45); HEMOGLOBIN 11.3 g/dL (11.5-14.8); LYMPHOCYTES # (AUTO) 1.1 /CMM (0.8-4.8); LYMPHOCYTES % (AUTO) 15.1 % (20.0-44.0); MEAN CORPUSCULAR HGB CONC 34 g/dl (31.0-36.0); MEAN CORPUSCULAR VOLUME 94 fL (82-100); MONOCYTES # (AUTO) 0.7 /CMM (0.1-1.30); MONOCYTES % (AUTO) 10.1 % (2.0-12.0); NEUTROPHILS % (AUTO) 68.8 % (43.0-81.0); PLATELET COUNT (AUTO) 156 /CMM (150-450); RED BLOOD CELL COUNT(AUTO) 3.59 MIL/uL (4.0-5.2); WHITE BLOOD COUNT (AUTO) 7.2 K/uL (4.3-11.0)
--- NOTE | 2018-07-11 06:53 | NUR ---
MS BUSINESS REPORTING DEVELOPER NOTES PT REMAIN SLEEPING COMFORTABLY IN BED WITHOUT ANY ACUTE DISTRESS NOTED SLEPT WELL AFTER SLEEP MEDICATION GIVEN PER PT REQUESTED. STABLE FRANK THE NIGHT. MORNING CARE DONE . RESPIRATION EVEN AND NONLABORED NOT IN ANY ACUTE DISTRESS OR ANY DISCOMFORT NOTED AT THIS TIME,. KEPT HER WARM AND COMFORTABLE AT ALL TIMES. ENDORSE TO AM NURSE FOR CONTINUITY OF CARE.
--- NOTE | 2018-07-11 07:00 | NUR ---
MS RN OPENING NOTES RECEIVED PT IN BED, A/OX3. ON 1L NC. O2 SAT 97%. HR REGULAR. ON F/C. IV SITES PATENT/CLEAN/DRY/INTACT. PT C/O GENERALIZED PAIN. BED IN LOCKED/LOWEST POSITION. CALL LIGHT IN REACH. WILL CONT TO MONITOR.
[2018-07-11 07:03] LABS: CALCIUM, SERUM 8.6 mg/dL (8.5-10.1); CARBON DIOXIDE 30 mmol/L (21-32); CHLORIDE 106 mmol/L (98-107); CREATININE 0.8 mg/dL (0.6-1.3); GLUCOSE 88 mg/dL (74-106); MAGNESIUM 2.2 mg/dL (1.8-2.4); PHOSPHORUS 4.1 mg/dL (2.5-4.9); SODIUM SERUM 141 mmol/L (136-145); UREA NITROGEN, BLOOD 24 mg/dL (7-18)
[2018-07-11 08:00] VITALS: BP 152/75
[2018-07-11] MEDS: PANTOPRAZOLE 40 MG TABLET.DR PO SCH (08:22)
[2018-07-11] MEDS: AMIODARONE HCL 200 MG TABLET PO SCH (08:23)
[2018-07-11] MEDS: FERROUS SULFATE (325 MG) 325 MG/TAB TABLET PO SCH (08:23)
[2018-07-11] MEDS: LACTOBACILLUS RHAMNOSUS GG 1 EACH CAP.SPRINK PO SCH ×2 (08:23→17:31)
[2018-07-11] MEDS: POLYETHYLENE GLYCOL 3350 17 GM POWD.PACK PO SCH (08:23)
[2018-07-11] MEDS: DICLOFENAC SODIUM 25 MG TABLET.DR PO SCH ×3 (08:23→17:31)
[2018-07-11] MEDS: APIXABAN 2.5 MG TABLET PO SCH ×2 (08:34→17:31)
--- NOTE | 2018-07-11 10:10 | NUR ---
MS RN NOTES PT ENDORSED TO JOEL HERNANDEZ 205-1.
--- NOTE | 2018-07-11 10:45 | NUR ---
MS RN NOTES PT TRANSFERRED TO MS 205. PLACED ON O2. CALL LIGHT IN REACH. BED IN LOCKED/LOWEST POSITION.
--- NOTE | 2018-07-11 10:50 | NUR ---
SUPPLY CHAIN ASSISTANT NOTE PT ARRIVED ON TO THE UNIT VIA GURNEY AT 1050. SAFETY PRECAUTIONS IN PLACE, BED IN LOWEST LOCKED POSITION, X2 SIDE RAILS UP AND CALL LIGHT WITHIN REACH. WILL CONTINUE TO MONITOR.
[2018-07-11] MEDS: oxyCODONE/APAP (5/325 MG) 1 UDTAB TABLET PO PRN ×3 (11:33→22:10)
--- NOTE | 2018-07-11 12:50 | NUR ---
RN NOTES CALLED PHARMACY PER PT ORDER OF [place] DUE AT 1300. PER PHARMACY WILL BRING UP MEDICATION. WILL CONTINUE TO MONITOR.
[2018-07-11 16:00] VITALS: BP 134/75
--- NOTE | 2018-07-11 19:08 | NUR ---
RN CLOSING NOTES PT RESTING IN BED. ALL PATIENT NEEDS MET DURING THE SHIFT. THE PATIENT HAS A RIGHT FA #20 AND LEFT FA #20 IV BOTH INTACT AND PATENT. SAFETY PRECAUTIONS IN PLACE, BED IN LOWEST LOCKED POSITION, X2 SIDE RAILS UP AND CALL LIGHT WITHIN REACH. WILL ENDORSE TO ELECTRIC SHAVER MECHANIC FOR CONTINUITY OF CARE.
--- NOTE | 2018-07-11 19:30 | NUR ---
MS/RN OPENING NOTES PT RESTING COMFORTABLY IN BED, WATCHING TV. A/OX3. ON ROOM AIR, BREATHING EVEN AND UNLABORED. DENIES SOB, GENERALIZED PAIN NOTED 12/27, WILL ADMINISTER PAIN MEDS WHEN DUE. IV TO LFA PATENT AND INTACT, IV TO RFA DISLODGED AND REMOVED. MONCADA IN PLACE AND DRAINING TO GRAVITY. HOB ELEVATED. BED IN LOW/LOCKED POSITION WITH CALL LIGHT IN REACH, BILATERAL UPPER SIDE RAILS IN PLACE AND BED ALARM ON FOR SAFETY. WILL CONTINUE TO MONITOR
[2018-07-11 20:00] VITALS: BP 138/74
[2018-07-11] MEDS: IV NS 0.9% 1,000 ML IV PRN (23:23)
[2018-07-11] MEDS: TRAZODONE 50 MG TABLET PO SCH (23:23)
[2018-07-11] MEDS: ATORVASTATIN 40 MG TABLET PO SCH (23:24)
[2018-07-12] MEDS: ZOLPIDEM TARTRATE 5 MG TABLET PO PRN ×2 (00:56→23:03)
[2018-07-12] MEDS: oxyCODONE/APAP (5/325 MG) 1 UDTAB TABLET PO PRN ×5 (04:15→20:34)
[2018-07-12] MEDS: GABAPENTIN 100 MG CAPSULE PO SCH ×3 (06:04→20:33)
[2018-07-12 06:35] LABS: CALCIUM, SERUM 8.2 mg/dL (8.5-10.1); CARBON DIOXIDE 29 mmol/L (21-32); CHLORIDE 106 mmol/L (98-107); CREATININE 0.8 mg/dL (0.6-1.3); GLUCOSE 87 mg/dL (74-106); MAGNESIUM 2.2 mg/dL (1.8-2.4); PHOSPHORUS 3.4 mg/dL (2.5-4.9); POTASSIUM 3.9 mmol/L (3.5-5.1); SODIUM SERUM 141 mmol/L (136-145); UREA NITROGEN, BLOOD 24 mg/dL (7-18)
[2018-07-12 06:39] LABS: BASOPHILS % (AUTO) 0.8 % (0.0-2.0); EOSINOPHILS % (AUTO) 6.9 % (0.0-6.0); HEMATOCRIT 32 % (33-45); HEMOGLOBIN 10.8 g/dL (11.5-14.8); LYMPHOCYTES # (AUTO) 0.9 /CMM (0.8-4.8); LYMPHOCYTES % (AUTO) 17.4 % (20.0-44.0); MEAN CORPUSCULAR HGB CONC 33 g/dl (31.0-36.0); MEAN CORPUSCULAR VOLUME 95 fL (82-100); MONOCYTES # (AUTO) 0.6 /CMM (0.1-1.30); MONOCYTES % (AUTO) 11.6 % (2.0-12.0); NEUTROPHILS # (AUTO) 3.4 /CMM (1.8-8.9); NEUTROPHILS % (AUTO) 63.3 % (43.0-81.0); PLATELET COUNT (AUTO) 137 /CMM (150-450); RED BLOOD CELL COUNT(AUTO) 3.41 MIL/uL (4.0-5.2); WHITE BLOOD COUNT (AUTO) 5.3 K/uL (4.3-11.0)
--- NOTE | 2018-07-12 07:43 | NUR ---
MS/RN CLOSING NOTES PT AWAKE, RESTING COMFORTABLY IN BED. A/OX3. ON ROOM AIR, BREATHING EVEN AND UNLABORED. DENIES SOB, GENERALIZED PAIN NOTED 09/26. IV TO LFA PATENT AND INTACT RUNNING IVF ORDERED. KEPT COMFORTABLE DURING SHIFT. MONCADA IN PLACE AND DRAINING TO GRAVITY. ALL NEEDS MET. NO SIGNIFICANT CHANGES OVERNIGHT. BED REMAINS IN LOW/LOCKED POSITION WITH CALL LIGHT IN REACH, BILATERAL UPPER SIDE RAILS IN PLACE AND BED ALARM ON FOR SAFETY. ENDORSED TO DAY SHIFT RN ROWDY.
[2018-07-12 08:00] VITALS: BP 126/77
--- NOTE | 2018-07-12 08:01 | NUR ---
RN NOTES PATIENT A/OX3, BREATHING EVEN AND UNLABORED, NO SOB NOTED, DENIES PAIN AT THIS TIME, IV TO LFA PATENT AND INTACT, NEEDS ATTENDED AND MET, CALL LIGHT WITHIN REACH, WILL CONTINUE TO MONITOR.
[2018-07-12] MEDS: APIXABAN 2.5 MG TABLET PO SCH ×2 (08:32→16:35)
[2018-07-12] MEDS: AMIODARONE HCL 200 MG TABLET PO SCH (08:32)
[2018-07-12] MEDS: FERROUS SULFATE (325 MG) 325 MG/TAB TABLET PO SCH (08:32)
[2018-07-12] MEDS: PANTOPRAZOLE 40 MG TABLET.DR PO SCH (08:32)
[2018-07-12] MEDS: POLYETHYLENE GLYCOL 3350 17 GM POWD.PACK PO SCH (08:33)
[2018-07-12] MEDS: LACTOBACILLUS RHAMNOSUS GG 1 EACH CAP.SPRINK PO SCH ×2 (08:33→16:31)
[2018-07-12] MEDS: DICLOFENAC SODIUM 25 MG TABLET.DR PO SCH ×3 (08:33→16:33)
[2018-07-12] MEDS: MUPIROCIN OINT 2% 22 GM TUBE SCH ×2 (10:48→20:34)
[2018-07-12] MEDS: IV NS 0.9% 1,000 ML IV PRN (14:24)
--- NOTE | 2018-07-12 15:03 | NUR ---
RN NOTES PATIENT'S MONCADA CATHETER REMOVED, RECEIVED ORDER FROM LUBA PRIETO TO DISCONTINUE MONCADA CATHETER. PATIENT AWARE. URINE BAG SHOWS 350ML.
[2018-07-12 16:00] VITALS: BP 157/87
--- NOTE | 2018-07-12 18:37 | NUR ---
RN NOTES PATIENT A/OX3, PATIENT VOIDED X2 AFTER MONCADA CATH REMOVED, BREATHING EVEN AND UNLABORED, NO SOB NOTED, TURNED AND REPOSITIONED, PIV PATENT AND FLUSHES WELL, IVF INFUSING AND TOLERATING WELL, NEEDS ATTENDED AND MET, CALL LIGHT WITHIN REACH, WILL ENDORSE TO MATERIALS ENGINEER FOR ROWDY,.
--- NOTE | 2018-07-12 19:15 | NUR ---
RN INITIAL NOTES: RECEIVED REPORT FROM BETTY CLAROS, PT IN BED, AWAKE, A/O X3, ON 2L OXYGEN VIA NC, RESPIRATION EVEN AND UNLABORED. IV ACCESS DRESSING NOTED TO BE LOOSE PT KEPT SCRATCHING THE SITE, STATED SHE'S ALLERGIC TO TAPE. BLE OFFLOADED. VS TAKEN AND RECORDED. SAFETY PRECAUTIONS FOR FALL INITIATED, CALL LIGHT IN REACH, WILL CONTINUE MONITORING PT.
[2018-07-12 20:00] VITALS: BP 126/80
[2018-07-12 20:30] VITALS: BP 166/97
--- NOTE | 2018-07-12 20:35 | NUR ---
PRN PERCOCET: PT C/O BILATERAL TOES, HIP AND SHOULDER PAIN PS 8/10, REQUESTING FOR PERCOCET. PRN PERCOCET 2TAB ADMINISTERED AT THIS TIME, VS TAKEN AND RECORDED PRIOR TO ADMINISTERING MEDICATION. WILL CONTINUE TO MONITOR AND REASSESS.
--- NOTE | 2018-07-12 22:00 | NUR ---
REFUSAL FOR TURNING AND REPOSITIONING: PT REFUSED TO BE TURN AT THIS TIME, STATED SHE CAN DO IT HERSELF AND WILL DO SO LATER. ENCOURAGE TURNING AND REPOSITIONING MUCH POSSIBLE EVERY 2 HRS TO PREVENT PRESSURE ULCER DEVELOPMENT.
[2018-07-12] MEDS: TRAZODONE 50 MG TABLET PO SCH (22:04)
[2018-07-12] MEDS: ATORVASTATIN 40 MG TABLET PO SCH (22:04)
[2018-07-12 23:00] VITALS: BP 142/88
--- NOTE | 2018-07-12 23:03 | NUR ---
PRN AMBIEN: PT REQUESTING FOR SLEEPING PILL, PRN AMBIEN 5MG ADMINISTERED AT THIS TIME
--- NOTE | 2018-07-13 | NUR ---
REFUSED TO BE TURN: PT REFUSED TO BE REPOSITION. EDUCATION PROVIDED TO THE PT
--- NOTE | 2018-07-13 00:41 | NUR ---
RN NOTES: PT SLEEPING AT THIS TIME
--- NOTE | 2018-07-13 02:00 | NUR ---
RN NOTES: REFUSED AGAIN TO BE REPOSITION
[2018-07-13] MEDS: GABAPENTIN 100 MG CAPSULE PO SCH ×2 (04:50→12:20)
[2018-07-13] MEDS: oxyCODONE/APAP (5/325 MG) 1 UDTAB TABLET PO PRN ×3 (04:50→16:17)
--- NOTE | 2018-07-13 04:50 | NUR ---
PRN PERCOCET: PT C/O GENERALIZED PAIN 12/27 REQUESTING FOR PERCOCET, PRN PERCOCET 2TABS ADMINISTERED AT THIS TIME, WILL CONTINUE TO MONITOR AND REASSESS.
--- NOTE | 2018-07-13 06:59 | NUR ---
RN CLOSING NOTES: AWAKE, A/O X3, ON 2L OXYGEN VIA NC, LAST PAIN MEDS ADMINISTERED AT 0450AM. IV ACCESS REMAINS PATENT AND FLUSHING WELL, INFUSING WITH NS AT 60 ML/HR. BLE OFFLOADED. VS REMAINS STABLE, NEEDS ATTENDED. SAFETY PRECAUTIONS FOR FALL INITIATED, CALL LIGHT IN REACH, WILL ENDORSED TO DAY RN FOR ROWDY.
--- NOTE | 2018-07-13 07:30 | NUR ---
RN NOTES PATIENT A/OX3, ON O2 AT 2LPM VIA NS WITH SPO2 OF 95%, BREATHING EVEN AND UNLABORED, NO SOB, ON IVF NS AT 60ML/HR. KEPT COMFORTABLE, NEEDS ATTENDED, CALL LIGHT WITHIN REACH, WILL CONTINUE TO MONITOR.
[2018-07-13 08:00] VITALS: BP 152/74
[2018-07-13] MEDS: IV NS 0.9% 1,000 ML IV PRN (08:32)
[2018-07-13] MEDS: POLYETHYLENE GLYCOL 3350 17 GM POWD.PACK PO SCH (08:33)
[2018-07-13] MEDS: FERROUS SULFATE (325 MG) 325 MG/TAB TABLET PO SCH (08:33)
[2018-07-13] MEDS: DICLOFENAC SODIUM 25 MG TABLET.DR PO SCH ×3 (08:33→16:17)
[2018-07-13] MEDS: LACTOBACILLUS RHAMNOSUS GG 1 EACH CAP.SPRINK PO SCH ×2 (08:33→16:16)
[2018-07-13 08:34] VITALS: BP 152/74
[2018-07-13] MEDS: AMIODARONE HCL 200 MG TABLET PO SCH (08:34)
[2018-07-13] MEDS: MUPIROCIN OINT 2% 22 GM TUBE SCH (08:34)
[2018-07-13] MEDS: PANTOPRAZOLE 40 MG TABLET.DR PO SCH (08:35)
[2018-07-13] MEDS: APIXABAN 2.5 MG TABLET PO SCH ×2 (08:42→16:17)
[2018-07-13] MEDS ORDERED: ATOR40TA PO (15:24)
--- NOTE | 2018-07-13 17:30 | NUR ---
SUPERVISOR SCOURING PADS PATIENT A/OX3, BREATHING EVEN AND UNLABORED, NO SOB OR COUGH NOTED. DENIES PAIN AT THIS TIME, SEEN AND EXAMINED BY LUBA PRIETO AND RECEIVED ORDER FOR DISCHARGE. DISCHARGE INSTRUCTIONS PROVIDED TO PATIENT AND VERBALIZED UNDERSTANDING. PAPERWORKS SIGNED. SKIN ASSESSMENT COMPLETED, NO CHANGES, SKIN DRY AND INTACT, PHOTOS TAKEN. NO BELONGINGS, PIV REMOVED AND GAUZE APPLIED FOR PRESSURE. ALL NEEDS ATTENDED AND MET, REPORT GIVEN TO JOHNNY CLAROS AT [facility]. AMBULANCE CAME AND TRANSFERRED PATIENT TO SNF, IN STABLE CONDITION.
== END 2018-07-13 17:30 | DRG 177 ==
LOC: ER 12:49 → TELE1 21:28 → MEDSG1 07-10 23:13 → MEDSG2 07-11 10:11
PROVIDERS: ADMIT Nurse Practitioner Acute Care; ATTEND Nurse Practitioner Acute Care
DX: J15.6 Pneumonia due to other Gram-negative bacteria (principal); R53.2 Functional quadriplegia; E44.0 Moderate protein-calorie malnutrition; E87.1 Hypo-osmolality and hyponatremia; J90 Pleural effusion, not elsewhere classified; D68.59 Other primary thrombophilia; I48.0 Paroxysmal atrial fibrillation; G89.29 Other chronic pain; I50.9 Heart failure, unspecified; I16.0 Hypertensive urgency; K21.9 Gastro-esophageal reflux disease without esophagitis; F03.90 Unspecified dementia, unspecified severity, without behavioral disturbance, psychotic disturbance, mood disturbance, and anxiety; Z96.643 Presence of artificial hip joint, bilateral; M19.90 Unspecified osteoarthritis, unspecified site; Z79.01 Long term (current) use of anticoagulants; Z79.899 Other long term (current) drug therapy; I51.7 Cardiomegaly; K59.00 Constipation, unspecified; Z74.01 Bed confinement status; C44.90 Unspecified malignant neoplasm of skin, unspecified
CPT/HCPCS: 36415; 71045-TC; 80048-TC; 80061-TC; 80076-TC; 81000-TC; 83605-TC; 83690-TC; 83735-TC; 84100-TC; 84484-TC; 85025-TC; 85730-TC; 87040-TC; 87045-TC; 87081-TC; 89055; A4216; G0378; J0360; J1956; J2405; J2543; J7030; J7040; J7060

== ENCOUNTER 2022-10-18 14:22 | Inpatient (IN) | payer MEDICARE, BC ==
[~2022-10-18] VITALS: Ht 154.9 cm; Wt 68.9 kg
[~2022-10-18 14:22] MED LIST changes: -ALBU2.5V38 IH; +AMIN30LI2 PO; -AMIN30LI4 PO; -AMIO200T4 PO; +AMIO200T5 PO; +APIX2.5T PO; +ATOR40TA PO; +BISA10SU11 RC; -BISA10SU8 RC; +CAPS42.513 TP; +DICL50TA9 PO; +MELA3TAB41 PO; -OMEP20CA10 PO; +OMEP20CA15 PO; +TRAZ-182 PO
--- NOTE | 2022-10-18 14:30 | NUR ---
BIB PA FROM [facility], WORSENING PAIN/SWELLING, LEFT KNEE PAIN. PLACED IN BED, AAOX4, BREATHING UNLABORED SATURATING AT 96%RA, BEARABLE PAIN AT L KNEE.
[2022-10-18] MEDS ORDERED: ESCI10TA PO (14:41)
[2022-10-18] MEDS ORDERED: FURO20TA4 PO (14:41)
[2022-10-18] MEDS ORDERED: WARF3TAB59 PO (14:41)
[2022-10-18] MEDS ORDERED: POTA8TAB3 PO (14:41)
[2022-10-18] MEDS ORDERED: DIPH25CA51 PO (14:42)
[2022-10-18] MEDS ORDERED: HYDROCODONE/APAP 5/325MG TABLET PO ONE (15:30)
--- NOTE | 2022-10-18 15:30 | NUR ---
EXHAUST EMISSIONS INSPECTOR AT BEDSIDE
[2022-10-18] MEDS ORDERED: HYDROCODONE/APAP 5/325MG TABLET ONE (15:44)
[2022-10-18 15:55] LABS: BASOPHILS # (AUTO) 0.1 K/uL (0.0-0.2); BASOPHILS % (AUTO) 0.9 % (0.0-2.0); EOSINOPHILS % (AUTO) 4.8 % (0.0-6.0); HEMATOCRIT 33 % (33-45); HEMOGLOBIN 10.4 g/dL (11.5-14.8); LYMPHOCYTES # (AUTO) 1.2 K/uL (0.8-4.8); LYMPHOCYTES % (AUTO) 17.8 % (20.0-44.0); MEAN CORPUSCULAR HGB CONC 31 g/dl (31.0-36.0); MEAN CORPUSCULAR VOLUME 74 fL (82-100); MONOCYTES # (AUTO) 0.7 K/uL (0.1-1.30); MONOCYTES % (AUTO) 9.6 % (2.0-12.0); NEUTROPHILS # (AUTO) 4.6 K/uL (1.8-8.9); NEUTROPHILS % (AUTO) 66.9 % (43.0-81.0); PLATELET COUNT (AUTO) 279 K/uL (150-450); RED BLOOD CELL COUNT(AUTO) 4.45 MIL/uL (4.0-5.2); WHITE BLOOD COUNT (AUTO) 6.9 K/uL (4.3-11.0)
[2022-10-18 16:13] LABS: CALCIUM, SERUM 9.5 mg/dL (8.5-10.1); CREATININE 0.9 mg/dL (0.6-1.3); POTASSIUM 3.8 mmol/L (3.5-5.1)
[2022-10-18 16:23] LABS: ALBUMIN 2.9 g/dL (3.4-5.0); BILIRUBIN,DIRECT 0.3 mg/dL (0.0-0.2); BILIRUBIN,TOTAL 0.5 mg/dL (0.2-1.0); TOTAL PROTEIN, SERUM 7.6 g/dL (6.4-8.2)
--- NOTE | 2022-10-18 16:40 | NUR ---
LAC 20G, SALINE LOCKED
[2022-10-18] MEDS ORDERED: IV NS 0.9% 250 ML IV ONE (16:52)
[2022-10-18] MEDS ORDERED: CT SWABBABLE VALVE TRANS SET 1 EA INFUS.SET MC ONE (16:52)
[2022-10-18] MEDS ORDERED: IOHEXOL-300 100 ML VIAL IV ONE (16:52)
[2022-10-18 18:14] LABS: EOSINOPHILS % (MANUAL) 3 % (0-4); LYMPHOCYTES % (MANUAL) 15 % (16-48); MONOCYTES % (MANUAL) 10 % (0-11.0); NEUTROPHILS % (MANUAL) 72 (42-76)
[2022-10-18] MEDS ORDERED: PHYTONADIONE INJ 10 MG in IV NS 0.9% 50 ML IV ONE (18:30)
--- NOTE | 2022-10-18 19:15 | NUR ---
SWAB FOR COVID19 SENT TO LAB
--- NOTE | 2022-10-18 21:07 | NUR ---
REPORT GIVEN TO DARON CLAROS ROOM 311-2 FOR ROWDY
[2022-10-18 21:30] VITALS: BP 148/75
[2022-10-18] MEDS ORDERED: MAG HYDROX/AL HYDROX/SIMETH 30 ML UDC PO PRN (21:30)
[2022-10-18] MEDS ORDERED: ONDANSETRON HCL/PF 4 MG/2 ML VIAL IVP PRN (21:30)
[2022-10-18] MEDS ORDERED: ACETAMINOPHEN 325 MG TABLET PO PRN (21:30)
[2022-10-18] MEDS ORDERED: ZOLPIDEM TARTRATE 5 MG TABLET PO PRN (21:30)
[2022-10-18] MEDS ORDERED: Z GUARD REMEDY 4 OZ OINT TP PRN (21:30)
[2022-10-18] MEDS ORDERED: MAGNESIUM HYDROXIDE 30 ML UDC PO PRN (21:30)
--- NOTE | 2022-10-18 21:40 | NUR ---
PT TRANSFERRTED TO [facility]-2 VIA ACLS PROTOCOL VSS. ALL BELONGINGS WITH PT
--- NOTE | 2022-10-18 21:45 | NUR ---
MS MANAGER WORKERS COMPENSATION NOTES - RECEIVED PATIENT FROM ED AT 2129 VIA GURNEY UNDER THE CARE OF EVA LIVE WITH DX OF LEFT KNEE HEMATOMA. PATIENT IS A/O X3, IRRITABLE MOOD. BREATHING EVEN AND NON-LABORED ON ROOM AIR. VERBALIZED SHE HAS CHRONIC LOWER BACK PAIN AND LEFT LATERAL KNEE PAIN ON MOVEMENT, REDNESS AND SWELLING NOTED. NO CHEST PAIN, N/V/D/C. ABDOMEN SOFT AND NON-DISTENDED. HAS LEFT ANTECUBITAL IV ACCESS #20G AND SALINE LOCKED. NO S/S OF INFILTRATION NOTED. VITAL SIGNS TAKEN AND PHYSICAL ASSESSMENT DONE. ALL BELONGINGS ACCOUNTED FOR. ORIENTED PATIENT TO UNIT AND STAFF. PER PATIENT, SHE IS BED-BOUND BUT INDEPENDENT WITH SOME ADLS. SAFETY PRECAUTIONS IN PLACE: BED LOCKED AND IN LOW POSITION, SIDE RAILS UP X2, CALL LIGHT WITHIN REACH. WILL CONTINUE PLAN OF CARE.
--- NOTE | 2022-10-18 22:18 | NUR ---
PATIENT REQUESTED FOR MELANIA TO HELP HER SLEEP. GIVEN AND WILL MONITOR.
[2022-10-18] MEDS ORDERED: GABAPENTIN 100 MG CAPSULE PO ONE (23:00)
[2022-10-18] MEDS ORDERED: ESCITALOPRAM OXALATE (10 MG) 10 MG TABLET PO ONE (23:00)
--- NOTE | 2022-10-19 05:40 | NUR ---
EKG completed, results given to rn pediatric Grace
[2022-10-19 06:20] LABS: BASOPHILS # (AUTO) 0.1 K/uL (0.0-0.2); BASOPHILS % (AUTO) 0.9 % (0.0-2.0); EOSINOPHILS % (AUTO) 3.9 % (0.0-6.0); HEMATOCRIT 33 % (33-45); HEMOGLOBIN 10.2 g/dL (11.5-14.8); LYMPHOCYTES # (AUTO) 1.5 K/uL (0.8-4.8); LYMPHOCYTES % (AUTO) 21.1 % (20.0-44.0); MEAN CORPUSCULAR HGB CONC 31 g/dl (31.0-36.0); MEAN CORPUSCULAR VOLUME 74 fL (82-100); MONOCYTES # (AUTO) 0.7 K/uL (0.1-1.30); MONOCYTES % (AUTO) 10.2 % (2.0-12.0); NEUTROPHILS # (AUTO) 4.4 K/uL (1.8-8.9); NEUTROPHILS % (AUTO) 63.9 % (43.0-81.0); PLATELET COUNT (AUTO) 274 K/uL (150-450); RED BLOOD CELL COUNT(AUTO) 4.38 MIL/uL (4.0-5.2); WHITE BLOOD COUNT (AUTO) 6.9 K/uL (4.3-11.0)
--- NOTE | 2022-10-19 06:49 | NUR ---
MS RN CLOSING NOTES - PATIENT SLEEPING, EASY TO AROUSE. ABLE TO VERBALIZE NEEDS. SATURATING AT 95% ON ROOM AIR. NO CARDIAC OR RESPIRATORY DISTRESS THROUGHOUT THE NIGHT. AFEBRILE. HAS LEFT ANTECUBITAL IV ACCESS INTACT, PATENT AND FLUSHING. ALL DUE MEDS GIVEN AND NEEDS ATTENDED. PERINEAL CARE RENDERED. SAFETY PRECAUTIONS MAINTAINED. WILL ENDORSE TO AM RN FOR ROWDY.
[2022-10-19 06:52] LABS: CALCIUM, SERUM 9.1 mg/dL (8.5-10.1); CREATININE 0.7 mg/dL (0.6-1.3); MAGNESIUM 2.2 mg/dL (1.8-2.4); PHOSPHORUS 3.8 mg/dL (2.5-4.9); POTASSIUM 3.6 mmol/L (3.5-5.1)
[2022-10-19 07:00] VITALS: BP 163/118
--- NOTE | 2022-10-19 07:20 | NUR ---
MS RN OPENING NOTES RECEIVED PATIENT IN BED SLEEPING COMFORTABLY, AOX3 EASILY AWAKEN, EPISODES OF FORGETFULNESS. BREATHING ON ROOM AIR WITHOUT ANY DIFFICULTY. NOT SHOWING ANY APPARENT ACUTE DISTRESS. IV ACCESS ON LEFT AC G#20 SALINE LOCKED, FLUSHING WELL AND INTACT. DENIED PAIN NOR DISCOMFORT AT THE MOMENT, JUST WANTED TO SLEEP FOR NOW. PT IS ORIENTED TO ROOM AND STAFF. SAFETY MEASURES IN PLACE: BED IN LOWEST AND LOCKED POSITION, BED ALARM ON, SIDE RAILS UP X2, CALL LIGHT AND TRAY TABLE WITHIN EASY REACH. WILL CONTINUE TO MONITOR.
[2022-10-19] MEDS: PANTOPRAZOLE 40 MG TABLET.DR PO SCH (07:42)
--- NOTE | 2022-10-19 08:22 | NUR ---
RN NOTES - WOUND CARE NURSE ASKED ABOUT ORTHO CONSULT, EXPLAINED SEEN BY DR HERRERA AT THE ER AND RECOMMENDED CTA OF THE LLE.
--- NOTE | 2022-10-19 08:23 | NUR ---
RN NOTES - PHARMACY CALLED TO INFORM PT AND INR LEVELS ARE HIGH, ACKNOWLEDGED THAT COUMADIN AND BLOOD THINNING AGENTS ARE ON HOLD PER MD.
[2022-10-19] MEDS: FUROSEMIDE 20 MG TABLET PO SCH (08:25)
[2022-10-19] MEDS: AMIODARONE HCL 200 MG TABLET PO SCH (08:25)
[2022-10-19] MEDS: POLYETHYLENE GLYCOL 3350 17 GM POWD.PACK PO SCH ×2 (08:25→09:00)
[2022-10-19] MEDS: GABAPENTIN 100 MG CAPSULE PO SCH ×3 (08:25→16:52)
[2022-10-19] MEDS: LACTOBACILLUS RHAMNOSUS GG 1 EACH CAP.SPRINK PO SCH ×2 (08:25→21:05)
[2022-10-19] MEDS ORDERED: CT SWABBABLE VALVE TRANS SET 1 EA INFUS.SET MC ONE (08:51)
[2022-10-19] MEDS ORDERED: IOHEXOL-350 100 ML VIAL IV ONE (08:51)
[2022-10-19] MEDS ORDERED: IV NS 0.9% 250 ML IV ONE (08:51)
[2022-10-19] MEDS ORDERED: oxyCODONE/APAP (5/325 MG) 1 UDTAB TABLET PO PRN (09:00)
--- NOTE | 2022-10-19 09:00 | NUR ---
RN NOTES - MD ORDERED CTA OF THE LEFT KNEE - PATIENT SIGNED CONSENTS AND WAS TAKEN TO THE CT LAB BY 1 TECH
--- NOTE | 2022-10-19 09:28 | NUR ---
WOUND CARE CONSULT: PT OFF UNIT AT THIS TIME HAVING PROCEDURE. WILL SEE PT PT CONDITION PERMITS. CURRENT SHARRI SCORE IS 18.
[2022-10-19] MEDS: POTASSIUM CHLORIDE 10 MEQ TABLET.SA PO SCH (10:10)
--- NOTE | 2022-10-19 10:11 | NUR ---
RN NOTES - PATIENT IS BACK TO FROM CTA, PATIENT IS AOX4, STABLE, AND DENIED NO PAIN NOR DISCOMFORT.
--- NOTE | 2022-10-19 13:02 | NUR ---
RN NOTES - PATIENT REFUSED MIRALAX SHE SAID SHE HAD SOFT BUT FORMED STOOL THIS MORNING. RETURNED THE MEDICATION BACK THE CABINET
[2022-10-19 16:00] VITALS: BP 145/85
--- NOTE | 2022-10-19 16:46 | NUR ---
RN NOTES - RESULTS OF THE CTA RELAYED TO [facility], AWAITING ORDERS.
[2022-10-19] MEDS: ESCITALOPRAM OXALATE (10 MG) 10 MG TABLET PO SCH (17:18)
[2022-10-19] MEDS: diphenhydrAMINE HCL 25 MG CAPSULE PO SCH (17:19)
--- NOTE | 2022-10-19 18:53 | NUR ---
MS RN CLOSING NOTES PATIENT IN BED AWAKE, WATCHING NEWS ON HER PHONE, AOX3, ABLE TO MAKE NEEDS KNOWN. BREATHING ON ROOM AIR WITHOUT ANY DIFFICULTY. NO ACUTE DISTRESS NOTED. STILL WITH THE SAME IV ACCESS ON LEFT AC G#20 SALINE LOCKED. STILL NO PAIN NOR DISCOMFORT AT THIS TIME. ALL NEEDS MET, ALL DUE MEDS GIVEN. SAFETY MEASURES MAINTAINED: BED IN LOWEST AND LOCKED POSITION, BED ALARM ON, SIDE RAILS UP X2, CALL LIGHT AND TRAY TABLE WITHIN EASY REACH. 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
--- NOTE | 2022-10-19 19:40 | NUR ---
MS RN Opening Note Received patient in bed; awake, alert and oriented x 3. On room air; tolerating well. Not in any form of respiratory or cardiac distress. No c/o pain or discomfort. With IV access on left antecubital 20g; patent, intact and saline locked. Able to make needs known. Safety precautions implemented: call light and table within reach, side rails up x 3, bed in lowest locked position. Will continue to monitor throughout shift.
[2022-10-19 20:00] VITALS: BP 150/95
[2022-10-19] MEDS: oxyCODONE/APAP (5/325 MG) 1 UDTAB TABLET PO PRN (21:06)
--- NOTE | 2022-10-19 21:06 | NUR ---
RN Note Patient complained of lower back pain 8/10 pain scale. PRN Percocet 5/325 mg 1 tab given po as indicated. Will continue to monitor and reassess patient.
[2022-10-20 06:24] LABS: BASOPHILS # (AUTO) 0.1 K/uL (0.0-0.2); BASOPHILS % (AUTO) 0.9 % (0.0-2.0); EOSINOPHILS % (AUTO) 5.8 % (0.0-6.0); HEMATOCRIT 31 % (33-45); HEMOGLOBIN 9.6 g/dL (11.5-14.8); LYMPHOCYTES # (AUTO) 1.8 K/uL (0.8-4.8); LYMPHOCYTES % (AUTO) 26.9 % (20.0-44.0); MEAN CORPUSCULAR HGB CONC 31 g/dl (31.0-36.0); MEAN CORPUSCULAR VOLUME 76 fL (82-100); MONOCYTES # (AUTO) 0.8 K/uL (0.1-1.30); MONOCYTES % (AUTO) 11.4 % (2.0-12.0); NEUTROPHILS # (AUTO) 3.7 K/uL (1.8-8.9); PLATELET COUNT (AUTO) 276 K/uL (150-450); WHITE BLOOD COUNT (AUTO) 6.7 K/uL (4.3-11.0)
--- NOTE | 2022-10-20 06:35 | NUR ---
MS RN Closing Note Patient in bed; awake, a/o x 3. Stable on room air. In no acute distress. No c/o pain or discomfort. With IV access on left antecubital 20g; patent, intact and saline locked. All needs attended. All due meds given as ordered. Safety precautions maintained: call light and table within reach, side rails up x 3, bed in lowest locked position. Endorsed to morning shift for continuity of care.
[2022-10-20 06:43] LABS: CREATININE 0.8 mg/dL (0.6-1.3); MAGNESIUM 2.3 mg/dL (1.8-2.4); PHOSPHORUS 4.1 mg/dL (2.5-4.9); POTASSIUM 3.3 mmol/L (3.5-5.1)
[2022-10-20 07:00] VITALS: BP 147/73
--- NOTE | 2022-10-20 07:40 | NUR ---
MS RN OPENING NOTES RECEIVED PATIENT AWAKE IN BED, A/OX3. ON ROOM AIR, TOLERATING WELL, NOT IN ANY FORM OF RESPIRATORY DISTRESS, WITH NON LABORED, AND EVEN BREATHING PATTERN. NO COMPLAINTS OF PAIN OR DISCOMFORT AT THIS TIME. WITH IV ACCESS ON LEFT AC G#20 PATENT, INTACT, FLUSHING WELL, ON SALINE LOCK. SAFETY PRECAUTIONS MAINTAINED, BED IN LOWEST POSITION, HOB ELEVATED, CALL LIGHT AND TABLE WITHIN EASY REACH, SIDERAILS UPX3. WILL CONTINUE TO MONITOR AND ASSIST THROUGHOUT THE SHIFT.
[2022-10-20] MEDS: POLYETHYLENE GLYCOL 3350 17 GM POWD.PACK PO SCH (08:27)
[2022-10-20] MEDS: FUROSEMIDE 20 MG TABLET PO SCH (08:27)
[2022-10-20] MEDS: AMIODARONE HCL 200 MG TABLET PO SCH (08:28)
[2022-10-20] MEDS: POTASSIUM CHLORIDE 10 MEQ TABLET.SA PO SCH (08:28)
[2022-10-20] MEDS: GABAPENTIN 100 MG CAPSULE PO SCH ×3 (08:28→17:06)
[2022-10-20] MEDS: LACTOBACILLUS RHAMNOSUS GG 1 EACH CAP.SPRINK PO SCH ×2 (08:28→21:19)
[2022-10-20] MEDS: PANTOPRAZOLE 40 MG TABLET.DR PO SCH (08:28)
[2022-10-20] MEDS ORDERED: POTASSIUM CHLORIDE 10 MEQ TABLET.SA PO ONE (12:00)
[2022-10-20 16:00] VITALS: BP 138/66
[2022-10-20] MEDS: ESCITALOPRAM OXALATE (10 MG) 10 MG TABLET PO SCH (17:06)
[2022-10-20] MEDS: diphenhydrAMINE HCL 25 MG CAPSULE PO SCH (17:06)
--- NOTE | 2022-10-20 18:38 | NUR ---
MS RN CLOSING NOTES PATIENT AWAKE IN BED, A/OX4. ON ROOM AIR, TOLERATING WELL, NOT IN ANY FORM OF RESPIRATORY DISTRESS, WITH NON LABORED, AND EVEN BREATHING PATTERN. NO COMPLAINTS OF PAIN OR DISCOMFORT AT THIS TIME. WITH IV ACCESS ON LEFT AC G#20 PATENT, INTACT, FLUSHING WELL, ON SALINE LOCK. SAFETY PRECAUTIONS MAINTAINED, BED IN LOWEST POSITION, HOB ELEVATED, CALL LIGHT AND TABLE WITHIN EASY REACH, SIDERAILS UPX3. WILL ENDORSE TO PM SHIFT FOR ROWDY.
--- NOTE | 2022-10-20 19:51 | NUR ---
RN OPENING NOTE PATIENT AWAKE IN BED. A/OX3. NO S/S OF DISTRESS, BREATHING WITHOUT DIFFICULTY ON ROOM AIR. LAC #20 SL INTACT AND PATENT. SAFETY MEASURES IN PLACE: BED LOCKED AND AT LOWEST POSITION, RAILS UP X2, CALL VICTORIA WITHIN REACH. WILL CONTINUE TO MONITOR PATIENT.
[2022-10-20 20:00] VITALS: BP 147/73
[2022-10-20] MEDS: oxyCODONE/APAP (5/325 MG) 1 UDTAB TABLET PO PRN (21:20)
[2022-10-21 06:22] LABS: BASOPHILS # (AUTO) 0.1 K/uL (0.0-0.2); EOSINOPHILS % (AUTO) 7.1 % (0.0-6.0); HEMATOCRIT 31 % (33-45); HEMOGLOBIN 9.4 g/dL (11.5-14.8); LYMPHOCYTES # (AUTO) 1.8 K/uL (0.8-4.8); LYMPHOCYTES % (AUTO) 27.2 % (20.0-44.0); MEAN CORPUSCULAR HGB CONC 31 g/dl (31.0-36.0); MEAN CORPUSCULAR VOLUME 76 fL (82-100); MONOCYTES # (AUTO) 0.8 K/uL (0.1-1.30); MONOCYTES % (AUTO) 11.7 % (2.0-12.0); NEUTROPHILS # (AUTO) 3.5 K/uL (1.8-8.9); PLATELET COUNT (AUTO) 270 K/uL (150-450); RED BLOOD CELL COUNT(AUTO) 4.04 MIL/uL (4.0-5.2); WHITE BLOOD COUNT (AUTO) 6.6 K/uL (4.3-11.0)
[2022-10-21 06:44] LABS: CALCIUM, SERUM 8.9 mg/dL (8.5-10.1); CARBON DIOXIDE 25 mmol/L (21-32); CHLORIDE 105 mmol/L (98-107); GLUCOSE 108 mg/dL (74-106); MAGNESIUM 2.2 mg/dL (1.8-2.4); PHOSPHORUS 3.8 mg/dL (2.5-4.9); POTASSIUM 3.8 mmol/L (3.5-5.1); SODIUM SERUM 139 mmol/L (136-145); UREA NITROGEN, BLOOD 17 mg/dL (7-18)
--- NOTE | 2022-10-21 06:50 | NUR ---
RN CLOSING NOTE PATIENT ASLEEP IN BED. A/OX4. NO S/S OF DISTRESS, BREATHING WITHOUT DIFFICULTY ON ROOM AIR. LAC #20 SL INTACT AND PATENT. SAFETY MEASURES IN PLACE: BED LOCKED AND AT LOWEST POSITION, RAILS UP X2, CALL VICTORIA WITHIN REACH. WILL ENDORSE TO NEXT SHIFT FOR ROWDY.
[2022-10-21 07:00] VITALS: BP 131/78
--- NOTE | 2022-10-21 07:20 | NUR ---
RN OPENING NOTES RECEIVED PATIENT ASLEEP IN BED, RESPONDS TO NAME, EASILY AROUSED. A/OX3. NO S/S OF DISTRESS, BREATHING WITHOUT DIFFICULTY ON ROOM AIR. LAC #20 SL INTACT AND PATENT. SAFETY MEASURES IN PLACE: BED LOCKED AND AT LOWEST POSITION, RAILS UP X2, CALL VICTORIA WITHIN REACH. WILL CONTINUE TO MONITOR PATIENT.
[2022-10-21] MEDS: PANTOPRAZOLE 40 MG TABLET.DR PO SCH (07:40)
[2022-10-21] MEDS: POTASSIUM CHLORIDE 10 MEQ TABLET.SA PO SCH (09:23)
[2022-10-21] MEDS: POLYETHYLENE GLYCOL 3350 17 GM POWD.PACK PO SCH (09:23)
[2022-10-21] MEDS: FUROSEMIDE 20 MG TABLET PO SCH (09:23)
[2022-10-21] MEDS: LACTOBACILLUS RHAMNOSUS GG 1 EACH CAP.SPRINK PO SCH ×2 (09:24→20:48)
[2022-10-21] MEDS: GABAPENTIN 100 MG CAPSULE PO SCH ×3 (09:24→16:46)
[2022-10-21] MEDS: AMIODARONE HCL 200 MG TABLET PO SCH (09:25)
[2022-10-21 16:00] VITALS: BP 123/73
[2022-10-21] MEDS: oxyCODONE/APAP (5/325 MG) 1 UDTAB TABLET PO PRN (16:00)
--- NOTE | 2022-10-21 16:00 | NUR ---
RN NOTED PATIENT COMPLAINED OF PAIN 8/10 PER SCALE. PRN PAIN MEDS GIVEN.
[2022-10-21] MEDS: diphenhydrAMINE HCL 25 MG CAPSULE PO SCH (17:21)
[2022-10-21] MEDS: ESCITALOPRAM OXALATE (10 MG) 10 MG TABLET PO SCH (17:21)
--- NOTE | 2022-10-21 18:52 | NUR ---
RN CLOSING NOTES: PATIENT ASLEEP IN BED, RESPONDS TO NAME, EASILY AROUSED. A/OX3. NO S/S OF DISTRESS, BREATHING WITHOUT DIFFICULTY ON ROOM AIR. LAC #20 SL INTACT AND PATENT. SAFETY MEASURES IN PLACE: BED LOCKED AND AT LOWEST POSITION, RAILS UP X2, CALL VICTORIA WITHIN REACH. WILL ENDORSE TO PM SHIFT FOR ROWDY.
--- NOTE | 2022-10-21 19:00 | NUR ---
RN CLOSING NOTE RECEIVED PT AWAKE IN BED. PT IS A/O X 4, ABLE TO MAKE NEEDS KNOWN. PT IS IN RA TOLERATING WELL, BREATHING EVEN AND UNLABORED @ THIS TIME. PT IV PRESENT IN LEFT AC #20G SALINE LOCK, PATENT, INTACT AND FLUSHES WELL W/ NO S&SX OF INFILTRATION @ SITE NOTED. SAFETY MEASURES IS IN PLACE. BED IN LOWEST ABND LOCKED POSITION. SIDE RAILS X 2. BEDSIDE TABLE AND CALL LIGHT IS EASY REACH. BED ALARM IS ON. WILL CONTINUE TO MONITOR PT ACCORDINGLY
[2022-10-22 06:39] LABS: BASOPHILS # (AUTO) 0.1 K/uL (0.0-0.2); EOSINOPHILS % (AUTO) 7.6 % (0.0-6.0); HEMATOCRIT 30 % (33-45); HEMOGLOBIN 9.4 g/dL (11.5-14.8); LYMPHOCYTES # (AUTO) 1.3 K/uL (0.8-4.8); LYMPHOCYTES % (AUTO) 22.2 % (20.0-44.0); MEAN CORPUSCULAR HGB CONC 32 g/dl (31.0-36.0); MEAN CORPUSCULAR VOLUME 76 fL (82-100); MONOCYTES # (AUTO) 0.7 K/uL (0.1-1.30); MONOCYTES % (AUTO) 11.4 % (2.0-12.0); NEUTROPHILS # (AUTO) 3.4 K/uL (1.8-8.9); NEUTROPHILS % (AUTO) 57.8 % (43.0-81.0); PLATELET COUNT (AUTO) 240 K/uL (150-450); RED BLOOD CELL COUNT(AUTO) 3.96 MIL/uL (4.0-5.2)
[2022-10-22 06:54] LABS: CALCIUM, SERUM 8.8 mg/dL (8.5-10.1); CREATININE 0.9 mg/dL (0.6-1.3); MAGNESIUM 2.3 mg/dL (1.8-2.4); POTASSIUM 4.1 mmol/L (3.5-5.1)
[2022-10-22 07:00] VITALS: BP 124/72
--- NOTE | 2022-10-22 07:21 | NUR ---
MS RN OPENING NOTES RECEIVED PATIENT LYING IN BED, AA/OX4, NO S/S OF PAIN NOTED, PATIENT IS ON RA, BREATHING EVEN AND UN LABORED, NO DISTRESS OR SOB NOTED, IV ACCESS RAC #20G, PATENT, INTACT, AND FLUSHING WELL, FALL AND SAFETY MEASURES IN PLACE, BED ALARM ON, BED IN LOW AND LOCK POSITION, CALL LIGHT AND TABLE WITHIN EASY REACH, SIDE RAILS UP X2, WILL CONTINUE TO MONITOR.
[2022-10-22] MEDS: PANTOPRAZOLE 40 MG TABLET.DR PO SCH (07:58)
[2022-10-22] MEDS: LACTOBACILLUS RHAMNOSUS GG 1 EACH CAP.SPRINK PO SCH (08:59)
[2022-10-22] MEDS: AMIODARONE HCL 200 MG TABLET PO SCH (09:00)
[2022-10-22] MEDS: POLYETHYLENE GLYCOL 3350 17 GM POWD.PACK PO SCH (09:00)
[2022-10-22] MEDS: FUROSEMIDE 20 MG TABLET PO SCH (09:00)
[2022-10-22] MEDS: GABAPENTIN 100 MG CAPSULE PO SCH ×3 (09:00→16:27)
[2022-10-22] MEDS: POTASSIUM CHLORIDE 10 MEQ TABLET.SA PO SCH (09:00)
--- NOTE | 2022-10-22 09:43 | NUR ---
WOUND CARE CONSULT: PT SEEN FOR SKIN ASSESSMENT AND NOTED TO HAVE RT ARM RAISED AREA AND LEFT LOWER LEG LARGE DISCOLORED RAISED AREA, P RESENT ON ADMISSION. PT STATES THAT LEG IS BOTHERING HER QUITE A BIT. PT IS INCONTINENT AND BEDBOUND. DR YOON CALLED FOR SURGICAL CONSULT. DISCUSSED SKIN PROTECTION WITH NURSING STAFF. IN AGREEMENT WITH PLAN OF CARE.
--- NOTE | 2022-10-22 09:47 | NUR ---
RN NOTES APPLIED PUREWICK PER WOUND RN JAGUAR DUDLEY
[2022-10-22] MEDS: oxyCODONE/APAP (5/325 MG) 1 UDTAB TABLET PO PRN (12:44)
[2022-10-22] MEDS ORDERED: APIX5TAB PO (16:10)
[2022-10-22 16:18] VITALS: BP 121/58
[2022-10-22] MEDS ORDERED: APIXABAN 5 MG TABLET PO SCH (17:00)
[2022-10-22] MEDS: ESCITALOPRAM OXALATE (10 MG) 10 MG TABLET PO SCH (17:23)
[2022-10-22] MEDS: diphenhydrAMINE HCL 25 MG CAPSULE PO SCH (17:28)
--- NOTE | 2022-10-22 17:54 | NUR ---
TELECOMMUNICATIONS ANALYST NOTE PATIENT DISCHARGE IN STABLE MEDICAL CONDITION, A/OX4, V/S TAKEN, STABLE AND RECORDED, REMOVED IV ACCESS, NO BLEEDING NOTED, APPLIED DRY DRESSING, NAME ARM BAND REMOVED, SKIN ASSESSMENT DONE AND PICTURED TAKEN, ALL BELONGINGS CHECKED AND BELONGING LIST SIGNED, HEALTH TEACHING AND DISCHARGE INSTRUCTIONS GIVEN AND VERBALIZED UNDERSTANDING, CALLED [facility] AND SPOKE WITH [facility] AND GAVE REPORT, NO QUESTIONS NOTED AND VERBALIZED UNDERSTANDING REGARDING THE DISCHARGE ORDERS, INSTRUCTED PATIENT TO MAKE AN APPOINTMENT WITH HIS PCP WITHIN 1 WEEK, DISCUSSED PRESCRIPTIONS WITH PATIENT, INSTRUCTED PATIENT IN CASE OF EMERGENCY TO CALL 911 OR GO THO THE NEAREST ER, PATIENT LEFT UNIT VIA GURNEY WITH NO SIGNS OF DISTRESS, ACCOMPANIED BY 2 EMT'S, MD AND CHARGE NURSE AWARE OF DISCHARGE.
== END 2022-10-22 17:55 | disposition home health service (06) | DRG 556 ==
LOC: ER 14:31 → MED 21:11
PROVIDERS: ADMIT Nurse Practitioner Acute Care; ATTEND Student in an Organized Health Care Education/Training Program
DX: M79.81 Nontraumatic hematoma of soft tissue (principal); E44.0 Moderate protein-calorie malnutrition; D68.59 Other primary thrombophilia; I48.20 Chronic atrial fibrillation, unspecified; F03.93 Unspecified dementia, unspecified severity, with mood disturbance; M17.12 Unilateral primary osteoarthritis, left knee; K21.9 Gastro-esophageal reflux disease without esophagitis; I50.9 Heart failure, unspecified; I11.0 Hypertensive heart disease with heart failure; E11.51 Type 2 diabetes mellitus with diabetic peripheral angiopathy without gangrene; Z96.643 Presence of artificial hip joint, bilateral; Z79.01 Long term (current) use of anticoagulants; Z79.899 Other long term (current) drug therapy; G89.29 Other chronic pain; Z98.1 Arthrodesis status; Z74.01 Bed confinement status; E88.09 Other disorders of plasma-protein metabolism, not elsewhere classified; I73.9 Peripheral vascular disease, unspecified; J44.9 Chronic obstructive pulmonary disease, unspecified
CPT/HCPCS: 36415; 71045-TC; 73701-TC; 75635-TC; 80048-TC; 80076-TC; 83735-TC; 84100-TC; 85025-TC; 85610-TC; 85730-TC; 87081-TC; 93307-TC; 94799-TC; 97110-TC; 97112-TC; 97530-TC; C9803; G0378; J3430; J7050; Q0163; Q9967